=== PATIENT | male | born 1945 | race Caucasian/White ===

== ENCOUNTER 2022-03-20 12:28 | Observation (INO) ==
--- NOTE | 2022-03-20 12:47 | Emergency Department Note ---
Abdominal Pain HPI General Chief Complaint: Abdominal Pain Stated Complaint: Abdominal Pain Time Seen by Provider: 03/20/22 12:44 Source: patient Mode of arrival: ambulatory Limitations: no limitations History of Present Illness HPI Narrative: This is a 76-year-old male patient with history of PVD (status post aortofemoral bypass in 2002) on Plavix, partial small bowel resection, CAD, COPD, history of CVA and TIA, HLD, HTN who presents for 10 out of 10 abdominal pain and bloating that started yesterday. He notes that he has not had a bowel movement for a week so thought he might be constipated. He took MiraLAX yesterday and then woke up at 2 AM this morning and had a fairly copious loose bowel movement. Since then he has had 4 additional loose stools. He has had nausea but no vomiting. He denies melena or hematochezia. Patient is concerned should he need admission as he does have a long awaited pr ocedure to remove a basal cell carcinoma on his left ear on Monday. The patient currently denies chest pain or shortness of breath. He denies cough. Denies F/C/S. Denies dysuria or hematuria. Related Data Home Medications Medication Instructions Recorded Confirmed Lactobacillus acidophilus PO 08/25/16 08/25/16 acetaminophen 325 mg tablet 650 mg PO QDAY PRN Pain 08/25/16 03/20/22 aspirin 81 mg tablet,delayed 81 mg PO .COMPLEX 08/25/16 03/20/22 release atenolol 50 mg tablet 50 mg PO BID 08/25/16 08/25/16 atorvastatin 80 mg tablet 80 mg PO QHS 08/25/16 03/20/22 budesonide-formoterol HFA 80 2 inh inhalation Q12H 08/25/16 08/25/16 mcg-4.5 mcg/actuation aerosol inhaler bupropion HCl 150 mg tablet,12 hr 150 mg PO BID 08/25/16 08/25/16 sustained-release clopidogrel 75 mg tablet 75 mg PO QDAY 08/25/16 03/20/22 dextran 70-hypromellose 0.1 %-0.3 drp ophthalmic (eye) 08/25/16 08/25/16 % eye drops diphenhydramine HCl 25 mg tablet 50 mg PO TID-QID PRN 08/25/16 08/25/16 docusate sodium 250 mg capsule 250 mg PO QDAY 08/25/16 08/25/16 ergocalciferol (vitamin D2) 1,250 50,000 unit PO QWEEK 08/25/16 08/25/16 mcg (50,000 unit) capsule fluticasone 50 mcg 120D inhalation .COMPLEX 08/25/16 08/25/16 gabapentin 600 mg tablet 600 mg PO BID 08/25/16 03/20/22 hydrocortisone 1 % topical cream 1 applic topical BID PRN 08/25/16 08/25/16 (Anti-Itch (hydrocortisone)) hydrophilic cream 1 applic topical BID PRN 08/25/16 08/25/16 ipratropium 20 mcg-albuterol 100 1 inh inhalation QID 08/25/16 08/25/16 mcg/actuation mist for inhalation lactulose 10 gram/15 mL oral 20 g PO BID 08/25/16 08/25/16 solution lansoprazole 15 mg capsule,delayed 30 mg PO BID 08/25/16 08/25/16 release lisinopril 40 mg tablet 40 mg PO QHS 08/25/16 03/20/22 magnesium oxide 420 mg tablet 420 mg PO QDAY 08/25/16 08/25/16 meclizine 25 mg chewable tablet 25 mg PO TID 08/25/16 08/25/16 melatonin 3 mg tablet 3 mg PO HS PRN Sleep 08/25/16 03/20/22 multivitamin with minerals 1 tab-cap PO QDAY 08/25/16 03/20/22 nitroglycerin 0.4 mg sublingual 0.4 mg sublingual Q5-15M PRN Sleep 08/25/16 03/20/22 tablet prazosin 2 mg capsule 2 mg PO QHS 08/25/16 08/25/16 prazosin 5 mg capsule 5 mg PO QHS 08/25/16 08/25/16 carvedilol 25 mg tablet 25 mg PO BID 03/20/22 03/20/22 cyclobenzaprine 10 mg tablet 10 mg PO BID PRN Muscle Spasm 03/20/22 03/20/22 diclofenac sodium 1 % topical gel 4 g topical BID 03/20/22 03/20/22 (Arthritis Pain (diclofenac)) lidocaine 5 % topical patch 1 patch topical QDAY 03/20/22 03/20/22 omeprazole 20 mg tablet,delayed 20 mg PO QDAY 03/20/22 03/20/22 release tamsulosin 0.4 mg capsule 0.4 mg PO QDAY 03/20/22 03/20/22 Allergies Allergy/AdvReac Type Severity Reaction Status Date / Time azithromycin Allergy Unknown Verified 03/20/22 13:15 methadone [Methadone] Allergy Unknown Verified 03/20/22 13:15 morphine Allergy Unknown Verified 03/20/22 13:15 Nefazodone [From Serzone] Allergy Unknown Verified 03/20/22 13:15 sulfamethoxazole Allergy Unknown Verified 03/20/22 13:15 trimethoprim Allergy Unknown Verified 03/20/22 13:15 Sulfa Drugs Allergy Unknown Uncoded 08/25/16 15:49 Review of Systems ROS ROS Narrative: Narrative: All systems ED: reviewed and negative except as stated. [facility] Narrative Patient History Narrative: Narrative: Medical/Surgical/Family History All Active Problems (Updated 03/20/22 @ 22:29 by Lauren London PA-C) Partial obstruction of small intestine (Acute) Partial small bowel obstruction (Acute) Cervicalgia (Chronic) Anxiety (Chronic) Vitamin D deficiency (Chronic) Left knee pain (Chronic) Unsteady gait (Chronic) Secondary erythrocytosis (Chronic) Paroxysmal vertigo (Chronic) Obstructive sleep apnea syndrome (Chronic) Lymphocytosis (Chronic) Premature atrial contraction (Chronic) TIA (transient ischemic attack) (Chronic) History of cerebrovascular accident (Chronic) Hyperlipemia (Chronic) Snoring (Chronic) Upper airway resistance syndrome (Chronic) Hypersomnia (Chronic) Constipation (Chronic) Basal cell carcinoma of skin of upper extremity (Chronic) Coronary artery disease (Chronic) Angina pectoris (Chronic) Coronary arteriosclerosis (Chronic) Male erectile disorder (Chronic) Peripheral vascular disease, unspecified (Chronic) Epistaxis (Chronic) Subjective tinnitus (Chronic) Positional vertigo (Chronic) Chronic pain (Chronic) Cervical spondylosis (Chronic) COPD (chronic obstructive pulmonary disease) (Chronic) Hypercholesterolemia (Chronic) Hypertensive disorder (Chronic) Chronic post-traumatic stress disorder (Chronic) Benign prostatic hypertrophy with urinary obstruction (Chronic) Medical History Angina pectoris Anxiety Basal cell carcinoma of skin of upper extremity Benign prostatic hypertrophy with urinary obstruction Cervical spondylosis Cervicalgia Chronic pain Neck, back of head, lower back Chronic post-traumatic stress disorder Constipation COPD (chronic obstructive pulmonary disease) Coronary arteriosclerosis Coronary artery disease Epistaxis History of cerebrovascular accident Hypercholesterolemia Hyperlipemia Hypersomnia Hypertensive disorder systemic arterial Left knee pain Lymphocytosis Male erectile disorder Obstructive sleep apnea syndrome Paroxysmal vertigo Peripheral vascular disease, unspecified Positional vertigo Premature atrial contraction Secondary erythrocytosis Snoring Subjective tinnitus TIA (transient ischemic attack) Unsteady gait Upper airway resistance syndrome Vitamin D deficiency Surgical History History of aorto-femoral bypass (~2002) History of esophagogastroduodenoscopy (EGD) (12/23/10) History of resection of small bowel (~2003) Family History Other No pertinent family history Exam Narrative Narrative: General: AOx3, NAD, nontoxic appearing. Pleasant and conversant. HEENT: PERRL, EOMI, normocephalic. Moist mucous membranes. Normal facies and normal dentition. Chest: Symmetric, no pain to palpation Respiratory: Lungs clear to auscultation bilaterally. No respiratory distress. Unlabored breathing. Heart: Bradycrdic rate and rhythm, no murmurs/clicks/rubs. Abdomen: Left upper quadrant and left lower quadrant tenderness. The abdomen is distended. Absent bowel tones. she hasNo organomegaly. Extremities: Warm and well perfused. No edema. DP 2+ bilaterally. No venous stasis. Neuro: No focal deficits. Cranial nerves II-XII grossly normal. Skin: Warm dry, no rashes or lesions, no cyanosis. Psych: Normal mood and affect Heme/Lymph: No abnormal bruising General Limitations: no limitations Course Course Course Narrative: 76-year-old male presents with acute abdominal pain and bloating Reevaluation(s) Reevaluation #1: Obtain basic labs, CTA of the abdomen pelvis with contrast to rule out small bowel obstruction, occlusion of his aortic bifemoral grafts, mesenteric ischemia, other Obtain troponin and EKG to rule out cardiac ischemia Reevaluation #2: Basic labs are unremarkable. EKG is negative for acute ischemia. Troponin is undetectable. CT of the abdomen pelvis without aortobifem graft compromise. No evidence of mesenteric ischemia. Partial small bowel obstruction is noted in the jejunum. I reached out to Dr. Mejias for consultation and admission. He will see the patient. Vital Signs Vital signs: Vital Signs Temperature 98.1 F 03/20/22 12:30 Pulse Rate 57 L 03/20/22 12:30 Respiratory Rate 18 03/20/22 12:30 Blood Pressure 135/59 03/20/22 12:30 Pulse Oximetry (%) 98 03/20/22 12:30 Oxygen Delivery Method 03/20/22 12:30 Temperature 97.5 F 03/20/22 20:00 Pulse Rate 85 03/20/22 20:00 Respiratory Rate 18 03/20/22 20:00 Blood Pressure 118/56 03/20/22 20:00 Pulse Oximetry (%) 96 03/20/22 20:00 Oxygen Delivery Method 03/20/22 20:00 MDM MDM Narrative Medical decision making narrative: Partial small bowel obstruction I reached out to Dr. Mejias for consultation and admission. Patient has been accepted. N.p.o., IV fluids, pain meds as needed. Lab Data Result diagrams: 03/20/22 13:03 Labs: Lab Results 03/20/22 03/20/22 03/20/22 Range/Units 13:03 13:03 13:03 WBC 10.6 (4.5-11.0) K/mcL RBC 4.65 (4.63-6.08) M/mcL Hgb 14.4 (13.7-17.5) g/dL Hct 43.3 (40.1-51.0) % POC Hct (41-55) MCV 93.1 (80.0-100.0) fL MCH 31.0 (26.0-34.0) pg MCHC 33.3 (31.0-36.0) g/dL RDW 12.8 (11.5-14.5) % Plt Count 271 (140-440) K/mcL MPV 9.5 (7.4-10.4) fL Immature Gran % (Auto) 0.3 (0.0-0.5) % Neut % (Auto) 68.7 (38.0-78.0) % Lymph % (Auto) 21.5 (15.5-49.0) % Bibb % (Auto) 8.0 (1.0-12.0) % Eos % (Auto) 1.1 (0.0-7.0) % Baso % (Auto) 0.4 (0.0-2.0) % Lymph # (Auto) 2.27 (1.50-4.80) K/mcL Bibb # (Auto) 0.85 (0.10-0.90) K/mcL Eos # (Auto) 0.12 (0.00-0.70) K/mcL Baso # (Auto) 0.04 (0.00-0.30) K/mcL Immature Gran # 0.03 (0.00-0.05) K/mcl Absolute Neutrophils 7.25 (1.80-8.00) K/mcL ESR 1 (0-20) mm/hr POC Sodium (133-145) POC Potassium (3.3-5.1) POC Chloride (96-108) POC Total CO2 (22-30) POC BUN (6-20) POC Creatinine (0.6-1.2) POC Glucose (70-105) POC WB Ioniz Calcium (1.16-1.32) Lipase 14 (7-60) U/L Urine Color Urine Appearance (Clear) Urine pH (5.0-9.0) Ur Specific [place] (1.000-1.035) Urine Protein (Negative) mg/dL Urine Glucose (UA) (Negative) mg/dL Urine Ketones (Negative) mg/dL Urine Occult Blood (Negative) dorothy/mcL Urine Nitrate (Negative) Urine Bilirubin (Negative) mg/dL Urine Urobilinogen mg/dL Ur Leukocyte Esterase (Negative) /uL Ur Culture Indicated? POC Troponin I (0.02-0.08) 03/20/22 03/20/22 03/20/22 Range/Units 13:07 13:09 13:45 WBC (4.5-11.0) K/mcL RBC (4.63-6.08) M/mcL Hgb (13.7-17.5) g/dL Hct (40.1-51.0) % POC Hct 44.0 (41-55) MCV (80.0-100.0) fL MCH (26.0-34.0) pg MCHC (31.0-36.0) g/dL RDW (11.5-14.5) % Plt Count (140-440) K/mcL MPV (7.4-10.4) fL Immature Gran % (Auto) (0.0-0.5) % Neut % (Auto) (38.0-78.0) % Lymph % (Auto) (15.5-49.0) % Bibb % (Auto) (1.0-12.0) % Eos % (Auto) (0.0-7.0) % Baso % (Auto) (0.0-2.0) % Lymph # (Auto) (1.50-4.80) K/mcL [place] # (Auto) (0.10-0.90) K/mcL Eos # (Auto) (0.00-0.70) K/mcL Baso # (Auto) (0.00-0.30) K/mcL Immature Gran # (0.00-0.05) K/mcl Absolute Neutrophils (1.80-8.00) K/mcL ESR (0-20) mm/hr POC Sodium 133 (133-145) POC Potassium 4.5 (3.3-5.1) POC Chloride 97 (96-108) POC Total CO2 27.0 (22-30) POC BUN 26 H (6-20) POC Creatinine 1.1 (0.6-1.2) POC Glucose 132 H (70-105) POC WB Ioniz Calcium 1.19 (1.16-1.32) Lipase (7-60) U/L Urine Color Yellow Urine Appearance Clear (Clear) Urine pH 6.5 (5.0-9.0) Ur Specific [place] <= 1.005 (1.000-1.035) Urine Protein Negative (Negative) mg/dL Urine Glucose (UA) Negative (Negative) mg/dL Urine Ketones Negative (Negative) mg/dL Urine Occult Blood Negative (Negative) dorothy/mcL Urine Nitrate Negative (Negative) Urine Bilirubin Negative (Negative) mg/dL Urine Urobilinogen Normal mg/dL Ur Leukocyte Esterase Negative (Negative) /uL Ur Culture Indicated? No POC Troponin I 0 L (0.02-0.08) Discharge Plan Patient/Caregiver Discharge Instructions Pt seen by DRAW IN HAND/PA only: Yes Clinical Impression: Partial obstruction of small intestine Patient Disposition: Xfer As Inpt ([facility]) Condition: Fair Discharge Date/Time: 03/20/22 16:23
[2022-03-20 13:10] LABS: POC Calcium, Ionized 1.19 (1.16-1.32); POC Creatinine 1.1 (0.6-1.2); POC Potassium 4.5 (3.3-5.1)
[2022-03-20] MEDS ORDERED: ACETAMINOPHEN 1,000 MG/100 ML BAG IV ONE (13:43)
[2022-03-20 13:51] LABS: Basophils # (Auto) 0.04 K/mcL (0.00-0.30); Basophils % (Auto) 0.4 % (0.0-2.0); Eosinophils # (Auto) 0.12 K/mcL (0.00-0.70); Eosinophils % (Auto) 1.1 % (0.0-7.0); Hematocrit 43.3 % (40.1-51.0); Hemoglobin 14.4 g/dL (13.7-17.5); Lymphocytes # (Auto) 2.27 K/mcL (1.50-4.80); Lymphocytes % (Auto) 21.5 % (15.5-49.0); Mean Cell Volume 93.1 fL (80.0-100.0); Mean Corpuscular HGB Conc 33.3 g/dL (31.0-36.0); Mean Platelet Volume 9.5 fL (7.4-10.4); Monocytes # (Auto) 0.85 K/mcL (0.10-0.90); Neutrophils % (Auto) 68.7 % (38.0-78.0); Platelet Count 271 K/mcL (140-440); RBC 4.65 M/mcL (4.63-6.08); Red Cell Distribution Width 12.8 % (11.5-14.5); WBC 10.6 K/mcL (4.5-11.0)
[2022-03-20 14:36] LABS: Appearance,Urine Clear (Clear); Bilirubin,Urine Negative (Negative); Color,Urine Yellow; Culture Indicated,Urine No; Glucose,Urine (UA) Negative (Negative); Ketones,Urine Negative (Negative); Leukocyte Esterase,Urine Negative /uL (Negative); Nitrate,Urine Negative (Negative); PH,Urine 6.5 (5.0-9.0); Protein,Urine Negative (Negative); Specific Gravity,Urine <= 1.005 (1.000-1.035); Urine Blood Negative ery/mcL (Negative); Urobilinogen,Urine Normal
[2022-03-20] MEDS ORDERED: ONDANSETRON 4 MG/2 ML VIAL IV PRN (15:19)
[2022-03-20] MEDS ORDERED: HYDROmorphone 1 MG/ML SYRINGE IV PRN (15:24)
[2022-03-20] MEDS ORDERED: PROMETHAZINE 25 MG/ML VIAL IV PRN (15:24)
[2022-03-20] MEDS: 0.9 % SODIUM CHLORIDE 1,000 ML IV SCH ×2 (15:33→19:38)
--- NOTE | 2022-03-20 15:43 | General Surg History&Physical ---
HPI History of Present Illness Patient information: Note initiated : 03/20/22 at 3:32 pm Service Date, if different from initiated Date: [] Patient: Homer Muoñz a 76 y/o M admitted on for Abdominal Pain. Chief Complaint: [] Chief complaint: Partial small bowel obstruction History of present illness: Mr. Muñoz is a 76 year old M admitted with partial small bowel obstruction. He has a history of 2 operative procedures in the remote past.One Was related to abdominal aortic aneurysm repair and the abdomen was was related to small bowel obstruction which required small bowel resection. On yesterday he developed in creased abdominal distention with bloating. He has had 5 days without bowel movement. He took a laxative which led to crampy abdominal pain and nausea. He had a bowel movement earlier today but still has severe crampy pain. The pain is primarily in his left lower quadrant. Findings suggest incomplete small bowel obstruction with dilated proximal loops of small bowel near the old anastomosis. Since his admission he has had at least a small amount of flatus and bowel movements. He has left lower quadrant pain. He is admitted for observation with a presumed partial obstruction probably related to adhesive disease. He will be treated symptomatically with follow-up x-rays of the abdomen in the a.m. Review of Systems All systems: reviewed and no additional remarkable complaints except as stated PFSH PFSH All Active Problems (Updated 03/20/22 @ 15:41 by Afia Mejias MD) Partial small bowel obstruction (Acute) Cervicalgia (Chronic) Anxiety (Chronic) Vitamin D deficiency (Chronic) Left knee pain (Chronic) Unsteady gait (Chronic) Secondary erythrocytosis (Chronic) Paroxysmal vertigo (Chronic) Obstructive sleep apnea syndrome (Chronic) Lymphocytosis (Chronic) Premature atrial contraction (Chronic) TIA (transient ischemic attack) (Chronic) History of cerebrovascular accident (Chronic) Hyperlipemia (Chronic) Snoring (Chronic) Upper airway resistance syndrome (Chronic) Hypersomnia (Chronic) Constipation (Chronic) Basal cell carcinoma of skin of upper extremity (Chronic) Coronary artery disease (Chronic) Angina pectoris (Chronic) Coronary arteriosclerosis (Chronic) Male erectile disorder (Chronic) Peripheral vascular disease, unspecified (Chronic) Epistaxis (Chronic) Subjective tinnitus (Chronic) Positional vertigo (Chronic) Chronic pain (Chronic) Cervical spondylosis (Chronic) COPD (chronic obstructive pulmonary disease) (Chronic) Hypercholesterolemia (Chronic) Hypertensive disorder (Chronic) Chronic post-traumatic stress disorder (Chronic) Benign prostatic hypertrophy with urinary obstruction (Chronic) Medical History Angina pectoris Anxiety Basal cell carcinoma of skin of upper extremity Benign prostatic hypertrophy with urinary obstruction Cervical spondylosis Cervicalgia Chronic pain Neck, back of head, lower back Chronic post-traumatic stress disorder Constipation COPD (chronic obstructive pulmonary disease) Coronary arteriosclerosis Coronary artery disease Epistaxis History of cerebrovascular accident Hypercholesterolemia Hyperlipemia Hypersomnia Hypertensive disorder systemic arterial Left knee pain Lymphocytosis Male erectile disorder Obstructive sleep apnea syndrome Paroxysmal vertigo Peripheral vascular disease, unspecified Positional vertigo Premature atrial contraction Secondary erythrocytosis Snoring Subjective tinnitus TIA (transient ischemic attack) Unsteady gait Upper airway resistance syndrome Vitamin D deficiency Surgical History History of aorto-femoral bypass (~2002) History of esophagogastroduodenoscopy (EGD) (12/23/10) History of resection of small bowel (~2003) Family History Other No pertinent family history Social History marital status: MEDS/ALLERGIES Home Medications and Allergies Home Medications Medication Instructions Recorded Confirmed Type Lactobacillus acidophilus PO 08/25/16 08/25/16 History acetaminophen 325 mg tablet 650 mg PO QDAY PRN Pain 08/25/16 03/20/22 History aspirin 81 mg tablet,delayed 81 mg PO .COMPLEX 08/25/16 03/20/22 History release atenolol 50 mg tablet 50 mg PO BID 08/25/16 08/25/16 History atorvastatin 80 mg tablet 80 mg PO QHS 08/25/16 03/20/22 History budesonide-formoterol HFA 80 2 inh inhalation Q12H 08/25/16 08/25/16 History mcg-4.5 mcg/actuation aerosol inhaler bupropion HCl 150 mg tablet,12 hr 150 mg PO BID 08/25/16 08/25/16 History sustained-release clopidogrel 75 mg tablet 75 mg PO QDAY 08/25/16 03/20/22 History dextran 70-hypromellose 0.1 %-0.3 drp ophthalmic (eye) 08/25/16 08/25/16 History % eye drops diphenhydramine HCl 25 mg tablet 50 mg PO TID-QID PRN 08/25/16 08/25/16 History docusate sodium 250 mg capsule 250 mg PO QDAY 08/25/16 08/25/16 History ergocalciferol (vitamin D2) 1,250 50,000 unit PO QWEEK 08/25/16 08/25/16 History mcg (50,000 unit) capsule fluticasone 50 mcg 120D inhalation .COMPLEX 08/25/16 08/25/16 History gabapentin 600 mg tablet 600 mg PO BID 08/25/16 03/20/22 History hydrocortisone 1 % topical cream 1 applic topical BID PRN 08/25/16 08/25/16 History (Anti-Itch (hydrocortisone)) hydrophilic cream 1 applic topical BID PRN 08/25/16 08/25/16 History ipratropium 20 mcg-albuterol 100 1 inh inhalation QID 08/25/16 08/25/16 History mcg/actuation mist for inhalation lactulose 10 gram/15 mL oral 20 g PO BID 08/25/16 08/25/16 History solution lansoprazole 15 mg capsule,delayed 30 mg PO BID 08/25/16 08/25/16 History release lisinopril 40 mg tablet 40 mg PO QHS 08/25/16 03/20/22 History magnesium oxide 420 mg tablet 420 mg PO QDAY 08/25/16 08/25/16 History meclizine 25 mg chewable tablet 25 mg PO TID 08/25/16 08/25/16 History melatonin 3 mg tablet 3 mg PO HS PRN Sleep 08/25/16 03/20/22 History multivitamin with minerals 1 tab-cap PO QDAY 08/25/16 03/20/22 History nitroglycerin 0.4 mg sublingual 0.4 mg sublingual Q5-15M PRN Sleep 08/25/16 03/20/22 History tablet prazosin 2 mg capsule 2 mg PO QHS 08/25/16 08/25/16 History prazosin 5 mg capsule 5 mg PO QHS 08/25/16 08/25/16 History carvedilol 25 mg tablet 25 mg PO BID 03/20/22 03/20/22 History cyclobenzaprine 10 mg tablet 10 mg PO BID PRN Muscle Spasm 03/20/22 03/20/22 History diclofenac sodium 1 % topical gel 4 g topical BID 03/20/22 03/20/22 History (Arthritis Pain (diclofenac)) lidocaine 5 % topical patch 1 patch topical QDAY 03/20/22 03/20/22 History omeprazole 20 mg tablet,delayed 20 mg PO QDAY 03/20/22 03/20/22 History release tamsulosin 0.4 mg capsule 0.4 mg PO QDAY 03/20/22 03/20/22 History Allergies Allergy/AdvReac Type Severity Reaction Status Date / Time azithromycin Allergy Unknown Verified 03/20/22 13:15 methadone [Methadone] Allergy Unknown Verified 03/20/22 13:15 morphine Allergy Unknown Verified 03/20/22 13:15 Nefazodone [From Serzone] Allergy Unknown Verified 03/20/22 13:15 sulfamethoxazole Allergy Unknown Verified 03/20/22 13:15 trimethoprim Allergy Unknown Verified 03/20/22 13:15 Sulfa Drugs Allergy Unknown Uncoded 08/25/16 15:49 Physical Examination Vital Signs Vital signs: Temp Pulse Resp BP Pulse Ox O2 Del Method 98.1 F 58 L 13 139/54 100 03/20/22 12:30 03/20/22 15:16 03/20/22 15:16 03/20/22 15:16 03/20/22 15:01 03/20/22 12:30 General physical appearance General physical exam: well developed, well nourished, moderate pain and chronically ill Eyes Eye exam: PERRL and normal ocular movement ENT ENT exam: normal mucosa and other (Ulcerated neoplasm posterior aspect of left pinna; no adenopathy noted) Head Head exam IM: Present atraumatic, normal inspection and normocephalic Neck Neck exam: no masses, no bruits, trachea midline, no lymphadenopathy and no venous distension Cardiovascular Cardiovascular exam IM: Present normal rate and rhythm, RRR, +S1 and +S2; Absent JVD Respiratory Respiratory exam: normal expansion, normal respiratory effort and clear to au scultation Abdomen Abdomen: Present soft, tender (Left lower quadrant at the level of umbilicus) and bowel sounds (Hyperactive bowel sounds) Integumentary Integumentary: Present no rash, no growths and no abnormal pigmentation Neurologic Neurologic: Present normal coordination and normal sensation Musculoskeletal Musculoskeletal: Present normal gait and normal posture Psychiatric Psychiatric: Present oriented to time, oriented to person, oriented to place, speech is normal and memory intact Results Labs Result diagrams: 03/20/22 13:03 Labs: Abnormal lab results 03/20/22 03/20/22 Range/Units 13:07 13:09 POC BUN 26 H (6-20) POC Glucose 132 H (70-105) POC Troponin I 0 L (0.02-0.08) All other labs normal. A/P Assessment and plan (1) Partial small bowel obstruction: Status: Acute (2) Obstructive sleep apnea syndrome: Status: Chronic (3) Coronary artery disease: Status: Chronic (4) Peripheral vascular disease, unspecified: Status: Chronic (5) COPD (chronic obstructive pulmonary disease): Status: Chronic Plan Allow clear liquids Metoclopramide 10 mg IV every 6 hours CBC, inpatient panel, sedimentation rate, lactic acid in the morning 2 view abdominal x-rays in the a.m. Small bowel follow-through if patient still has significant distention Time Spent With Patient Time: Total time spent is greater than 50% in coordination of care (as documented) at patient's floor/unit and/or counseling patient:
[2022-03-20] MEDS ORDERED: DIATRIZOATE MEGLU/DIATRIZO SOD 120 ML BOTTLE PO ONE (16:13)
--- NOTE | 2022-03-20 17:11 | Cat Scan Report ---
CLINICAL INFORMATION: Abdominal pain. History of aortobifemoral bypass graft COMPARISON: None. TECHNIQUE: Following enteric contrast, 80 cc of Isovue-[id number] were injected intravenously, and 20/60 seconds later, 0.625 mm helical slices were obtained from the mid heart through the subtrochanteric regions. Following reconstruction, 2.5 mm sagittal, coronal and axial reformatted images were processed and reviewed at bone, lung and soft tissue windows. Five minutes later, 0.625 mm helical slices were obtained from the mid heart through the kidneys and viewed at soft tissue windows.The exam was performed using radiation dose optimization techniques including, but not limited to, automated exposure control, adjustment of the mA and/or kV according to patient size and use of iterative reconstruction technique. FINDINGS: The lung bases show mild airspace disease in the posterior lower lobes likely atelectasis. No effusions.. The visualized heart is grossly normal. Abdominal images show the mild fatty change within the liver. There is a 18 mm simple cyst in the subdiaphragmatic right hepatic lobe. Gallbladder and bile ducts are normal colon CBD is 5 mm. Both kidneys, adrenal glands, spleen, and pancreas are normal in size, configuration and attenuation without focal lesion. There is no free air or adenopathy. A end to side infrarenal abdominal bifemoral bypass graft appreciated. Both proximal and distal anastomoses unremarkable. The common femoral and proximal superficial femoral and profunda femoral arteries contain plaque but no stenoses. The [place] infrarenal abdominal aorta and iliac arteries are moderately occluded-as expected. Celiac, SMA and renal arteries contain plaque, but no stenoses. Pelvic images show moderate prostate enlargement: transverse dimension 5 cm. Mild diffuse wall thickening of urinary bladder suggests chronic bladder outlet narrowing related to prostatism. The stomach, duodenum and jejunum are mildly dilated with relative decreased caliber of the distal small bowel and colon. Findings suggestive of mild partial small bowel obstruction in the mid region. Exact transition point is not identified. A small amount of free fluid in the deep true pelvis suggests early third spacing. Bone windows show no osseous abnormality IMPRESSION: 1. Mild mid partial small bowel obstruction. Small amount of free fluid in the deep true pelvis suggests early third spacing. 2. Moderate prostate enlargement. 3. Aortobifemoral bypass graft typical postoperative appearance. No complication. Interpreted and Authenticated by: Zion Encinas 03/20/22
[2022-03-20] MEDS: METOCLOPRAMIDE 10 MG/2 ML VIAL IV SCH ×2 (18:00→23:33)
[2022-03-20] MEDS: 0.9 % SODIUM CHLORIDE 10 ML SYRINGE IV SCH ×2 (19:39→20:25)
[2022-03-21] MEDS: 0.9 % SODIUM CHLORIDE 1,000 ML IV SCH ×2 (05:47→15:45)
[2022-03-21] MEDS: 0.9 % SODIUM CHLORIDE 10 ML SYRINGE IV SCH ×2 (05:56→13:56)
[2022-03-21] MEDS: METOCLOPRAMIDE 10 MG/2 ML VIAL IV SCH ×2 (05:56→12:11)
[2022-03-21 06:06] LABS: Basophils # (Auto) 0.04 K/mcL (0.00-0.30); Basophils % (Auto) 0.4 % (0.0-2.0); Eosinophils # (Auto) 0.14 K/mcL (0.00-0.70); Eosinophils % (Auto) 1.4 % (0.0-7.0); Hematocrit 38.6 % (40.1-51.0); Mean Cell Volume 92.6 fL (80.0-100.0); Mean Corpuscular HGB Conc 33.7 g/dL (31.0-36.0); Mean Platelet Volume 9.4 fL (7.4-10.4); Monocytes # (Auto) 0.88 K/mcL (0.10-0.90); Monocytes % (Auto) 8.8 % (1.0-12.0); Neutrophils % (Auto) 76.1 % (38.0-78.0); Platelet Count 217 K/mcL (140-440); RBC 4.17 M/mcL (4.63-6.08); Red Cell Distribution Width 12.7 % (11.5-14.5)
[2022-03-21 06:39] LABS: ALT/SGPT 10 U/L (<40); AST/SGOT 11 U/L (<40); Albumin 3.3 gm/dL (3.2-5.2); Albumin/Globulin Ratio 1.6 (1.0-2.3); Alkaline Phosphatase 71 U/L (39-117); Bilirubin,Direct < 0.2 mg/dL (0-0.3); Bilirubin,Total 0.5 mg/dL (0.1-1.0); Blood Urea Nitrogen 12 mg/dL (8-23); Calcium 7.8 mg/dL (8.6-10.4); Carbon Dioxide 23 mmol/L (22-30); Chloride 103 mmol/L (96-108); Globulin 2.1 gm/dL (2.2-3.7); Glomerular Filtration Rate 87; Glucose 95 mg/dL (70-105); Lactate Dehydrogenase 125 U/L (135-225); Phosphorous 2.4 mg/dL (2.5-4.5); Triglycerides 100 mg/dL (<150); Uric Acid 4.7 mg/dL (2.5-8.0)
[2022-03-21] MEDS ORDERED: PANTOPRAZOLE 40 MG TABLET PO SCH (07:30)
--- NOTE | 2022-03-21 07:33 | EKG ---
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 Measurements Intervals Bryan Rate: 56 P: 64 MD: 197 QRS: 73 QRSD: 98 T: 35 QT: 423 QTc: 409 Interpretive Statements Sinus rhythm Electronically Signed On 03-21-2022 7:32:55 PDT by Zion Santos M.D. /store/[email or web address]/[id number]
--- NOTE | 2022-03-21 08:22 | XRay Report ---
HISTORY: Follow-up small bowel obstruction FINDINGS: Supine and erect views were obtained. There are numerous air-fluid levels within stomach, small intestine and large intestine. Some of the loops of small intestine are dilated measuring up to 4.9 cm. No free intra-abdominal air is present. There is some stool in the large intestine from the splenic flexure to the rectum. Comparison with the prior CT performed yesterday shows relatively little change, except for more air-fluid levels in nondilated large intestine on today's study. IMPRESSION: Air-fluid levels in both large and small intestine. This is a nonspecific pattern, which could be an incomplete small bowel obstruction or ileus. Interpreted and Authenticated by: Saurabh Santos 03/21/22
--- NOTE | 2022-03-21 14:04 | XRay Report ---
HISTORY: Follow-up small bowel obstruction, prior partial small bowel resection for mechanical obstruction FINDINGS: Patient drank dilute Gastrografin contrast and serial images were acquired. Multiple fluoroscopic images were acquired. One minute 15 seconds of fluoroscopy time was used. The stomach is normal in contour and has normal distensibility and normal mucosal pattern. The duodenum is normal. Proximal jejunum is normal. There are is mild dilatation of segments of the distal jejunum and proximal ileum measuring up to 4.5 cm in diameter. The mucosal pattern is normal. No transition point is seen. Distal ileum is normal in caliber. The terminal ileum is partially obscured by overlying loops of bowel. The contrast has passed into the transverse colon by 90 minutes. Comparison with the CT done on 03/20/22 shows the caliber of the small intestine is smaller today. IMPRESSION: Resolved small bowel obstruction Interpreted and Authenticated by: Saurabh Santos 03/21/22
--- NOTE | 2022-03-21 15:25 | Discharge Summary ---
Discharge Provider Provider IMPORTANT FOLLOW-UP INFORMATION FOR PCP: Patient information: Note initiated : 03/21/22 at 3:17 pm Service Date, if different from initiated Date: [] Patient: Homer Muñoz 76 y/o M admitted on 03/20/22 for Abdominal Pain. Chief Complaint: [] Date of admission: 03/20/22 16:12 Discharge date: 03/21/22 Primary care physician: Siobhan Mejias Admitting clinician: Afia Mejias Attending physician on admission: Afia Mejias Consults: 03/20/22 Consult to Physician [CONS] Stat Comment: Consulting Provider: Afia Mejias Reason For Exam: Physician to Consult Attending physician on discharge: Afia Mejias Discharging clinician: Afia Mejias COURSE Hospital Course Hospital course: 76-year-old male with history of 2 prior open abdominal procedures and prior history of small bowel obstruction due to adhesions. Patient presents with history of increasing abdominal distention and no bowel movement x5 days. He took a laxative on the day prior to coming to the emergency room and had a very small bowel movement but still had significant pain and distention. He was admitted and started on bowel rest supplemented by metoclopramide. His abdomen remained distended though there was more contrast in his colon. He had a small bowel follow-through earlier today and this showed drainage into the colon and 2 hours with multiple bowel movements. He states that he feels better. There is no discrete area of obstruction noted. He is tolerated full liquid diet and is stable for discharge home. 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 Secondary discharge diagnosis: Obstructive sleep apnea Constipation Peripheral vascular disease Chronic obstructive lung disease Reason for admission: Small bowel obstruction Procedures: None Pertinent studies/significant findings: CT of abdomen and pelvis Single contrast small bowel follow-through Complications: None Time Spent with Patient Time attestation: Total time spent providing and/or coordinating discharge services: Time spent: Less than 30 minutes Physical Examination Vital Signs Vital signs: Temp Pulse Resp BP Pulse Ox O2 Del Method 97.3 F 66 18 156/73 91 03/21/22 12:00 03/21/22 12:00 03/21/22 12:00 03/21/22 12:00 03/21/22 12:00 03/21/22 12:00 Eyes Eye exam: PERRL and normal ocular movement ENT ENT exam: normal nares and other (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) Head Head exam IM: Present atraumatic, normal inspection and normocephalic Neck Neck exam: no masses, no bruits, trachea midline, no lymphadenopathy and no venous distension Cardiovascular Cardiovascular exam IM: Present normal rate and rhythm, RRR, +S1 and +S2; Absent JVD Respiratory Respiratory exam: normal expansion, normal respiratory effort and clear to auscultation Abdomen Abdomen: Present soft, non tender, bowel sounds (Hyperactive bowel sounds), surgical scars (Healed midline incision without hernia) and distended (Mild distention but soft) Integumentary Integumentary: Present no rash, no growths and no abnormal pigmentation Neurologic Neurologic: Present normal coordination and normal sensation Musculoskeletal Musculoskeletal: Present normal gait and normal posture Psychiatric Psychiatric: Present oriented to time, oriented to person, oriented to place, speech is normal and memory intact Discharge Plan Patient/Caregiver Discharge Instructions Activity: increase activity as tolerated Diet: Full Liquid Instructions: Polyethylene Glycol 3350 (By mouth), Bowel Obstruction (DC) Prescriptions: No Action aspirin 81 mg tablet,delayed release (DR/EC) 81 mg PO .COMPLEX Label Comments: 81 mg PO take 2 tablets QDAY Rx Instructions: 81 mg PO take 2 tablets QDAY atorvastatin 80 mg tablet 80 mg PO QHS bupropion HCl 150 mg tablet extended release 150 mg PO DAILY clopidogrel 75 mg tablet 75 mg PO QDAY dextran 70-hypromellose 0.1-0.3 % drops 1 drp OPHTHALMIC PRN PRN (Reason: Dry Eye(S)) diphenhydramine HCl 25 mg tablet 25 mg PO BID docusate sodium 250 mg capsule 250 mg PO QDAY fluticasone 50 mcg 120D 50 mcg drops 1 dose INHALATION DAILY Label Comments: INHALATION Rx Instructions: INHALATION gabapentin 600 mg tablet 600 mg PO BID hydrophilic cream cream 1 applic TOPICAL BID PRN (Reason: itching) lisinopril 40 mg tablet 40 mg PO QAM melatonin 3 mg tablet 3 mg PO HS PRN (Reason: Sleep) multivitamin with minerals capsule 1 tab-cap PO QDAY nitroglycerin 0.4 mg tablet, sublingual 0.4 mg SUBLINGUAL Q5-15M PRN (Reason: Sleep) carvedilol 25 mg Tablet 25 mg PO BID Rx Instructions: must administer with a meal/food cyclobenzaprine 10 mg Tablet 5 - 10 mg PO BID PRN (Reason: Muscle Spasm) diclofenac sodium [Arthritis Pain (diclofenac)] 1 % Gel 4 g TOPICAL BID lidocaine 5 % Adhesive Patch,Medicated 1 patch TOPICAL QDAY Rx Instructions: leave on most painful area for up to 12 hrs omeprazole 20 mg Tablet,Delayed Release (Dr/Ec) 20 mg PO QDAY tamsulosin 0.4 mg Capsule 0.4 mg PO QDAY tiotropium-olodaterol 2.5-2.5 mcg/actuation Mist 2 puff INHALATION DAILY acetaminophen 500 mg Tablet 1,000 mg PO BID PRN (Reason: Pain) Prescription drug monitoring program results: PDMP not reviewed Follow Up Plan Follow up with: Siobhan Mejias ARNP [Primary Care Provider] - (as needed.) Patient Disposition: Home, Self-Care Prognosis: Good Rehab Potential: Good I certify that the patient requires SNF services: No Overall status at discharge: patient is progressing back to baseline Discharge Orders: Discharge Order (Routine); Ordered 03/21/22 Ordered By: Afia Mejias Pending Pending Pending: Resuscitation Status Resuscitate (Full Code) Diet Full Liquid Diet Start MonMar 21 141 Hydromorphone HCl (Hydromorphone 1 Mg/Ml Syringe) 1 mg IV Q2HP PRN; Protocol PRN Reason: Per Pain Protocol Last Admin: 03/21/22 13:55 Dose: 1 mg Documented By: AFSHIN Sodium Chloride (Sodium Chloride 0.9%) 1,000 mls @ 100 mls/hr IV .Q10H [facility] Last Admin: 03/21/22 05:47 Dose: 100 mls/hr Documented By: Infusion: 03/21/22 05:47 Dose: 100 mls/hr Documented By: Admin: 03/20/22 19:38 Dose: 100 mls/hr Documented By: Infusion: 03/20/22 19:38 Dose: 0 mls/hr Documented By: Admin: 03/20/22 15:33 Dose: 100 mls/hr Documented By: GENOVEVA Metoclopramide HCl (Metoclopramide 10 Mg/2 Ml Vial) 10 mg IV Q6 [facility] Last Admin: 03/21/22 12:11 Dose: 10 mg Documented By: Admin: 03/21/22 05:56 Dose: 10 mg Documented By: Admin: 03/20/22 23:33 Dose: 10 mg Documented By: Admin: 03/20/22 18:00 Dose: 10 mg Documented By: ZOFIA Pantoprazole Sodium (Pantoprazole 40 Mg Tablet) 40 mg PO QAMAC [facility] Last Admin: 03/21/22 07:43 Dose: 40 mg Documented By: AFSHIN Sodium Chloride (0.9 % Sodium Chloride 10 Ml Syringe) 10 ml IV Q8 [facility] Last Admin: 03/21/22 13:56 Dose: 10 ml Documented By: Admin: 03/21/22 05:56 Dose: Not Given Documented By: Admin: 03/20/22 20:25 Dose: Not Given Documented By: Admin: 03/20/22 19:39 Dose: 10 ml Documented By: LÓPEZ Shift Summary 03/21/22 02:27 Shift Summary by Delia Calderon admit medical OBS 03/20 for partial SBO A&OX4, RA, VSS, 20G LAC, SBA, gait steady, voids per BR, no flatus or BM, calls appropriately, very pleasant and cooperative ABD 2VXR 03/21, depending on results may have small bowel follow through receiving Reglan, Protonix, NS @100mls/hr, no PRNs thus far HX- sleep apnea, COPD, HTN, Abdominal Aortic Aneurysm repair, small bowel resection, 0 BM x5 days prior to admit (small liquid spot of BM only) would like to D/C BY MONDAY D/T SURGICAL APPT FOR SKIN CANCER REMOVAL TO LEFT EAR, lives independently at home with family Initialized on 03/21/22 02:27 - END OF NOTE
[2022-03-21] MEDS ORDERED: PNEUMOCOCCAL 23-VAL P-SAC VAC 0.5 ML SYRINGE IM ONE (16:00)
[2022-03-22] MEDS ORDERED: PNEUMOCOCCAL 23-VAL P-SAC VAC 0.5 ML SYRINGE IM ONE (09:00)
== END 2022-03-21 16:02 | disposition home or self-care (01) ==
LOC: ED 12:28 → MEDSUR 12:28
PROVIDERS: ADMIT Family Medicine Adult Medicine; ATTEND Family Medicine Adult Medicine

== ENCOUNTER 2022-06-28 09:31 | Inpatient (IN) ==
[2022-06-28] MEDS ORDERED: IODIXANOL 100 ML BOTTLE IV ONE (09:32)
[2022-06-28] MEDS ORDERED: 0.9 % SODIUM CHLORIDE 1,000 ML IV ONE (09:47)
--- NOTE | 2022-06-28 10:05 | XRay Report ---
INDICATION: sob, covid TECHNIQUE: AP portable upright chest x-ray COMPARISON: Previous chest x-rays dated 11/28/2014, 11/06/2010 FINDINGS: Lungs:There are interstitial type infiltrates, especially at the right lung base. I cannot exclude a cavitary lesion at the right lung base. This would be atypical for Covid pneumonia. CT scan recommended. There is a round density projected over the left lung base most consistent with prominent nipple shadow. Heart, vascular:Heart size is within normal limits considering AP positioning. There are septal lines at both lung bases. These are nonspecific. Interstitial edema is possible but interstitial pneumonia can cause a similar appearance Mediastinum, carlos:No mediastinal widening. No hilar mass Pleura:No pleural fluid. No pleural-based mass or calcification Skeletal:Negative. IMPRESSION: 1. Bilateral interstitial infiltrates with bibasilar predominance. Appearance is consistent with pneumonia in Covid pneumonia is possible 2. Possible cavitating abnormality at the right lung base. Recommend CT scan Interpreted and Authenticated by: Zion Bee 06/28/22
[2022-06-28 10:11] LABS: POC Calcium, Ionized 1.12 (1.16-1.32); POC Creatinine 0.6 (0.6-1.2); POC Potassium 3.7 (3.3-5.1)
--- NOTE | 2022-06-28 10:41 | Emergency Department Note ---
SOB HPI General Chief Complaint: Shortness of Breath/Dyspnea Stated Complaint: COVID Time Seen by Provider: 06/28/22 09:34 Source: patient Mode of arrival: ambulatory Limitations: no limitations History of Present Illness HPI Narrative: Narrative: Patient presents to ED with complaints of not feeling well for almost 2 weeks. He states that he has been having cough, congestion, shortness of breath just generalized weakness. He states that 7 days ago he was diagnosed with COVID at the walk-in clinic. [facility] are concerned that he may have developed a pneumonia so they sent him here. Currently denies fever, chills, nausea, vomiting, cardiac chest pain, heart palpitations, hemoptysis, abdominal pain, diarrhea, dysuria, urinary frequency. He does report some congestion and some green sputum production. Patient denies any other alleviating or aggravating factors. Related Data Home Medications Medication Instructions Recorded Confirmed aspirin 81 mg tablet,delayed 81 mg PO .COMPLEX 08/25/16 06/21/22 release atorvastatin 80 mg tablet 80 mg PO QHS 08/25/16 06/21/22 bupropion HCl 150 mg tablet,12 hr 150 mg PO DAILY 08/25/16 06/21/22 sustained-release clopidogrel 75 mg tablet 75 mg PO QDAY 08/25/16 06/21/22 dextran 70-hypromellose 0.1 %-0.3 1 drp ophthalmic (eye) PRN PRN Dry 08/25/16 1 08/21/21 % eye drops Eye(S) diphenhydramine HCl 25 mg tablet 25 mg PO BID 08/25/16 06/21/22 docusate sodium 250 mg capsule 250 mg PO QDAY 08/25/16 06/21/22 fluticasone 50 mcg 120D 1 dose inhalation DAILY 08/25/16 06/21/22 gabapentin 600 mg tablet 600 mg PO BID 08/25/16 06/21/22 hydrophilic cream 1 applic topical BID PRN itching 08/25/16 06/21/22 lisinopril 40 mg tablet 40 mg PO QAM 08/25/16 06/21/22 melatonin 3 mg tablet 3 mg PO HS PRN Sleep 08/25/16 06/21/22 multivitamin with minerals 1 tab-cap PO QDAY 08/25/16 06/21/22 nitroglycerin 0.4 mg sublingual 0.4 mg sublingual Q5-15M PRN Sleep 08/25/16 06/21/22 tablet carvedilol 25 mg tablet 25 mg PO BID 03/20/22 06/21/22 cyclobenzaprine 10 mg tablet 5 - 10 mg PO BID PRN Muscle Spasm 03/20/22 06/21/22 diclofenac sodium 1 % topical gel 4 g topical BID 03/20/22 06/21/22 (Arthritis Pain (diclofenac)) lidocaine 5 % topical patch 1 patch topical QDAY 03/20/22 06/21/22 omeprazole 20 mg tablet,delayed 20 mg PO QDAY 03/20/22 06/21/22 release tamsulosin 0.4 mg capsule 0.4 mg PO QDAY 03/20/22 06/21/22 acetaminophen 500 mg tablet 1,000 mg PO BID PRN Pain 03/21/22 06/21/22 tiotropium 2.5 mcg-olodaterol 2.5 2 puff inhalation DAILY 03/21/22 06/21/22 mcg/actuation mist for inhalation Allergies Allergy/AdvReac Type Severity Reaction Status Date / Time azithromycin Allergy Unknown Unknown Verified 06/28/22 09:38 methadone [Methadone] Allergy Unknown Unknown Verified 06/28/22 09:38 morphine Allergy Unknown Unknown Verified 06/28/22 09:38 Nefazodone [From Serzone] Allergy Unknown Unknown Verified 06/28/22 09:38 sulfamethoxazole Allergy Unknown Unknown Verified 06/28/22 09:38 trimethoprim Allergy Unknown Unknown Verified 06/28/22 09:38 Sulfa Drugs Allergy Unknown Unknown Uncoded 03/24/22 16:42 Review of Systems ROS ROS Narrative: Narrative: All systems ED: reviewed and negative except as stated. [facility] Narrative Patient History Narrative: Narrative: Medical/Surgical/Family History All Active Problems (Updated 06/28/22 @ 11:58 by Stoney Slater DO) Acute and chronic respiratory failure with hypoxia (Acute) Pneumonia due to COVID-19 virus (Acute) Partial obstruction of small intestine (Acute) Partial small bowel obstruction (Acute) Cervicalgia (Chronic) Anxiety (Chronic) Vitamin D deficiency (Chronic) Left knee pain (Chronic) Unsteady gait (Chronic) Secondary erythrocytosis (Chronic) Paroxysmal vertigo (Chronic) Obstructive sleep apnea syndrome (Chronic) Lymphocytosis (Chronic) Premature atrial contraction (Chronic) TIA (transient ischemic attack) (Chronic) History of cerebrovascular accident (Chronic) Hyperlipemia (Chronic) Snoring (Chronic) Upper airway resistance syndrome (Chronic) Hypersomnia (Chronic) Constipation (Chronic) Basal cell carcinoma of skin of upper extremity (Chronic) Coronary artery disease (Chronic) Angina pectoris (Chronic) Coronary arteriosclerosis (Chronic) Male erectile disorder (Chronic) Peripheral vascular disease, unspecified (Chronic) Epistaxis (Chronic) Subjective tinnitus (Chronic) Positional vertigo (Chronic) Chronic pain (Chronic) Cervical spondylosis (Chronic) COPD (chronic obstructive pulmonary disease) (Chronic) Hypercholesterolemia (Chronic) Hypertensive disorder (Chronic) Chronic post-traumatic stress disorder (Chronic) Benign prostatic hypertrophy with urinary obstruction (Chronic) Medical History Angina pectoris Anxiety Basal cell carcinoma of skin of upper extremity Benign prostatic hypertrophy with urinary obstruction Cervical spondylosis Cervicalgia Chronic pain Neck, back of head, lower back Chronic post-traumatic stress disorder Constipation COPD (chronic obstructive pulmonary disease) Coronary arteriosclerosis Coronary artery disease Epistaxis History of cerebrovascular accident Hypercholesterolemia Hyperlipemia Hypersomnia Hypertensive disorder systemic arterial Left knee pain Lymphocytosis Male erectile disorder Obstructive sleep apnea syndrome Paroxysmal vertigo Peripheral vascular disease, unspecified Positional vertigo Premature atrial contraction Secondary erythrocytosis Snoring Subjective tinnitus TIA (transient ischemic attack) Unsteady gait Upper airway resistance syndrome Vitamin D deficiency Surgical History History of aorto-femoral bypass (~2002) History of esophagogastroduodenoscopy (EGD) (12/23/10) History of resection of small bowel (~2003) Family History Other No pertinent family history Social History Smoking Status: Current every day smoker Exam Narrative Narrative: Narrative: General Limitations: no limitations General appearance: Present alert ENT ENT: Present normal oropharynx and mucous membranes moist Neck Neck: Present normal inspection; Absent meningismus Chest Chest: Present normal inspection; Absent tenderness Respiratory Respiratory: Present rales/crackles and other (Tachypnea); Absent wheezes Cardiovascular Cardiovascular: Present regular rate and normal rhythm Adbominal Abdominal: Present soft; Absent tenderness Extremities Extremities: Present normal capillary refill Back Back: Absent CVA tenderness (R) or CVA tenderness (L) Neurological Neurological: Present oriented X3 and normal gait Psychiatric Psychiatric: Present normal affect and normal mood Skin Skin: Present warm (WNL) and intact Course Course Course Narrative: Patient was evaluated for shortness of breath. Chest x-ray obtained with image reviewed myself concerning for viral pneumonia. Labs were obtained and relatively unremarkable to clued normal white cell count and procalcitonin. With a normal Pro-[place] and white cell count bacterial pneumonia is less likely. CTA of the chest obtained due to elevated D-dimer negative for PE but consistent with COVID-pneumonia. Patient did test negative for COVID here but he did test positive last week so COVID-pneumonia still likely. Patient desatted down to 82% on room air after ambulation. He required 1 L of oxygen via nasal can to maintain adequate ox saturation. Recommend the patient be admitted to the hospital. Case was discussed with hospitalist was agreed to admit the patient. Reevaluation(s) Reevaluation #1: Patient remains hemodynamic stable. No new complaints at this time. Time: 10:40 Consultations Consultation #1: Discussed with hospitalist, Dr. Batista, who is graciously excepted patient to be admitted to the hospital Time: 12:12 Vital Signs Vital signs: Vital Signs Temperature 97.2 F 06/28/22 09:35 Pulse Rate 71 06/28/22 09:35 Respiratory Rate 26 H 06/28/22 09:35 Blood Pressure 148/60 06/28/22 09:35 Pulse Oximetry (%) 89 L 06/28/22 09:35 Oxygen Delivery Method 06/28/22 09:35 Temperature 97.2 F 06/28/22 09:35 Pulse Rate 70 06/28/22 11:31 Respiratory Rate 23 H 06/28/22 10:50 Blood Pressure 136/65 06/28/22 11:46 Pulse Oximetry (%) 82 L 06/28/22 11:46 Oxygen Delivery Method 06/28/22 11:53 Oxygen Flow Rate (L/min) 1 06/28/22 11:53 [facility] MDM Narrative Medical decision making narrative: Narrative: Differential Diagnosis Differential Diagnosis: Pneumonia, viral illness, PE Medical Records Medical records reviewed: Yes I reviewed the patient's medical records. Lab Data Lab results reviewed: Yes I reviewed the patient's lab results. Result diagrams: 06/28/22 09:48 Labs: Lab Results 1206/28/22 06/28/22 Range/Units 09:48 09:52 09:56 WBC 9.3 (4.5-11.0) K/mcL RBC 3.86 L (4.63-6.08) M/mcL Hgb 12.1 L (13.7-17.5) g/dL Hct 34.8 L (40.1-51.0) % POC Hct 35.0 L (41-55) MCV 90.2 (80.0-100.0) fL MCH 31.3 (26.0-34.0) pg MCHC 34.8 (31.0-36.0) g/dL RDW 13.2 (11.5-14.5) % Plt Count 403 (140-440) K/mcL MPV 9.4 (8.8-12.5) fL Immature Gran % (Auto) 0.5 (0.0-0.5) % Neut % (Auto) 68.5 (38.0-78.0) % Lymph % (Auto) 15.8 (15.5-49.0) % Vernon % (Auto) 13.5 H (1.0-12.0) % Eos % (Auto) 1.3 (0.0-7.0) % Baso % (Auto) 0.4 (0.0-2.0) % Lymph # (Auto) 1.47 L (1.50-4.80) K/mcL Vernon # (Auto) 1.26 H (0.10-0.90) K/mcL Eos # (Auto) 0.12 (0.00-0.70) K/mcL Baso # (Auto) 0.04 (0.00-0.30) K/mcL Immature Gran # 0.05 (0.00-0.05) K/mcl Absolute Neutrophils 6.39 (1.80-8.00) K/mcL D-Dimer (0.27-0.50) ug/mL POC VBG pH 7.41 (7.32-7.42) POC VBG pCO2 at Temp 41.8 (41-51) POC VBG pO2 29 (25-40) POC VBG HCO3 26.4 (24-28) POC VBG Total CO2 28.0 (25-29) POC Venous O2 Sat 56.0 (40-70) POC VBG Base Excess 2.0 (-2-2) VBG Lactic Acid 0.8 (0.5-2) POC Sodium 130 L (133-145) POC Potassium 3.7 (3.3-5.1) POC Chloride 95 L (96-108) POC Total CO2 27.0 (22-30) POC BUN 6 (6-20) POC Creatinine 0.6 (0.6-1.2) POC Glucose 121 H (70-105) POC WB Ioniz Calcium 1.12 L (1.16-1.32) Total Bilirubin (0.1-1.0) mg/dL Direct Bilirubin (<0.3) mg/dL AST (<40) U/L ALT (<40) U/L Alkaline Phosphatase (39-117) U/L Total Protein (5.9-8.4) gm/dL Albumin (3.2-5.2) gm/dL Globulin (2.2-3.7) gm/dL Procalcitonin (<0.10) ng/mL 06/28/22 06/28/22 06/28/22 Range/Units 10:14 10:14 10:39 WBC (4.5-11.0) K/mcL RBC (4.63-6.08) M/mcL Hgb (13.7-17.5) g/dL Hct (40.1-51.0) % POC Hct (41-55) MCV (80.0-100.0) fL MCH (26.0-34.0) pg MCHC (31.0-36.0) g/dL RDW (11.5-14.5) % Plt Count (140-440) K/mcL MPV (8.8-12.5) fL Immature Gran % (Auto) (0.0-0.5) % Neut % (Auto) (38.0-78.0) % Lymph % (Auto) (15.5-49.0) % Vernon % (Auto) (1.0-12.0) % Eos % (Auto) (0.0-7.0) % Baso % (Auto) (0.0-2.0) % Lymph # (Auto) (1.50-4.80) K/mcL Vernon # (Auto) (0.10-0.90) K/mcL Eos # (Auto) (0.00-0.70) K/mcL Baso # (Auto) (0.00-0.30) K/mcL Immature Gran # (0.00-0.05) K/mcl Absolute Neutrophils (1.80-8.00) K/mcL D-Dimer 1.56 H (0.27-0.50) ug/mL POC VBG pH (7.32-7.42) POC VBG pCO2 at Temp (41-51) POC VBG pO2 (25-40) POC VBG HCO3 (24-28) POC VBG Total CO2 (25-29) POC Venous O2 Sat (40-70) POC VBG Base Excess (-2-2) VBG Lactic Acid (0.5-2) POC Sodium (133-145) POC Potassium (3.3-5.1) POC Chloride (96-108) POC Total CO2 (22-30) POC BUN (6-20) POC Creatinine (0.6-1.2) POC Glucose (70-105) POC WB Ioniz Calcium (1.16-1.32) Total Bilirubin 0.6 (0.1-1.0) mg/dL Direct Bilirubin 0.2 (<0.3) mg/dL AST 16 (<40) U/L ALT 19 (<40) U/L Alkaline Phosphatase 68 (39-117) U/L Total Protein 6.3 (5.9-8.4) gm/dL Albumin 3.3 (3.2-5.2) gm/dL Globulin 3.0 (2.2-3.7) gm/dL Procalcitonin 0.04 (<0.10) ng/mL ED POC Tests ED POC Tests: RUTH ANN - Influenza A Negative RUTH ANN - Influenza B Negative RUTH ANN - SARS Antigen Negative Radiology Data Radiology results reviewed: Yes I reviewed the patient's radiology results. Radiology results narrative: Chest x-ray obtained with image reviewed myself, I agree with radiologist interpretation CTA chest obtained with image reviewed myself, agree with radiologist interpretation Core Measures AMI Core Measures Followed: Yes Discharge Plan Patient/Caregiver Discharge Instructions Pt seen by DISCHARGE PLANNER/PA only: No Clinical Impression: Acute and chronic respiratory failure with hypoxia, Pneumonia due to COVID-19 virus Patient Disposition: Xfer As Outpt/Obs ([facility]) Condition: Fair Follow up with: Siobhan Mejias ARNP [Primary Care Provider] - Prescriptions: No Action aspirin 81 mg tablet,delayed release (DR/EC) 81 mg PO .COMPLEX Label Comments: 81 mg PO take 2 tablets QDAY Rx Instructions: 81 mg PO take 2 tablets QDAY atorvastatin 80 mg tablet 80 mg PO QHS bupropion HCl 150 mg tablet extended release 150 mg PO DAILY clopidogrel 75 mg tablet 75 mg PO QDAY dextran 70-hypromellose 0.1-0.3 % drops 1 drp OPHTHALMIC PRN PRN (Reason: Dry Eye(S)) diphenhydramine HCl 25 mg tablet 25 mg PO BID docusate sodium 250 mg capsule 250 mg PO QDAY fluticasone 50 mcg 120D 50 mcg drops 1 dose INHALATION DAILY Label Comments: INHALATION Rx Instructions: INHALATION gabapentin 600 mg tablet 600 mg PO BID hydrophilic cream cream 1 applic TOPICAL BID PRN (Reason: itching) lisinopril 40 mg tablet 40 mg PO QAM melatonin 3 mg tablet 3 mg PO HS PRN (Reason: Sleep) multivitamin with minerals capsule 1 tab-cap PO QDAY nitroglycerin 0.4 mg tablet, sublingual 0.4 mg SUBLINGUAL Q5-15M PRN (Reason: Sleep) carvedilol 25 mg Tablet 25 mg PO BID Rx Instructions: must administer with a meal/food cyclobenzaprine 10 mg Tablet 5 - 10 mg PO BID PRN (Reason: Muscle Spasm) diclofenac sodium [Arthritis Pain (diclofenac)] 1 % Gel 4 g TOPICAL BID lidocaine 5 % Adhesive Patch,Medicated 1 patch TOPICAL QDAY Rx Instructions: leave on most painful area for up to 12 hrs omeprazole 20 mg Tablet,Delayed Release (Dr/Ec) 20 mg PO QDAY tamsulosin 0.4 mg Capsule 0.4 mg PO QDAY tiotropium-olodaterol 2.5-2.5 mcg/actuation Mist 2 puff INHALATION DAILY acetaminophen 500 mg Tablet 1,000 mg PO BID PRN (Reason: Pain)
[2022-06-28 11:23] LABS: Basophils # (Auto) 0.04 K/mcL (0.00-0.30); Basophils % (Auto) 0.4 % (0.0-2.0); Eosinophils # (Auto) 0.12 K/mcL (0.00-0.70); Eosinophils % (Auto) 1.3 % (0.0-7.0); Hematocrit 34.8 % (40.1-51.0); Hemoglobin 12.1 g/dL (13.7-17.5); Lymphocytes # (Auto) 1.47 K/mcL (1.50-4.80); Lymphocytes % (Auto) 15.8 % (15.5-49.0); Mean Cell Volume 90.2 fL (80.0-100.0); Mean Corpuscular HGB Conc 34.8 g/dL (31.0-36.0); Mean Platelet Volume 9.4 fL (8.8-12.5); Monocytes # (Auto) 1.26 K/mcL (0.10-0.90); Monocytes % (Auto) 13.5 % (1.0-12.0); Neutrophils % (Auto) 68.5 % (38.0-78.0); Platelet Count 403 K/mcL (140-440); RBC 3.86 M/mcL (4.63-6.08); Red Cell Distribution Width 13.2 % (11.5-14.5); WBC 9.3 K/mcL (4.5-11.0)
--- NOTE | 2022-06-28 11:27 | Cat Scan Report ---
INDICATION: sob COMPARISON: Previous chest x-ray dated 06/28/2022 TECHNIQUE: Axial images obtained through the chest. 90 mLml Isovue 370 injected intravenously, and scanning was performed during pulmonary arterial phase. Sagittally and coronally reformatted images were obtained. MIP reformatted images. FINDINGS: Lungs:There are infiltrates in both lungs with right apical predominance. There are tree-in-bud infiltrates as well as groundglass infiltrates. This patient has a positive Covid test and these findings may be due to Covid pneumonia. There is bilateral lower lobe pulmonary parenchymal density consistent with atelectasis. There are small bilateral pleural effusions, right worse than left. Pleural effusions are not typical of Covid pneumonia. Findings may be due to a combination of congestive heart failure and Covid pneumonia. There are reticular lines at both lung bases. There is mild peribronchial thickening. These findings may be consistent with interstitial edema. There is an irregular pulmonary parenchymal nodule in the right upper lobe. This measures 14 mm maximally, best identified on image 47. 3 month follow-up CT scan recommended. Mediastinum, vascular:Main pulmonary artery, right pulmonary artery, left pulmonary artery are negative. No intraluminal filling defects. No lobar, segmental, or subsegmental emboli. Thoracic aorta is negative. No aneurysmal dilatation. Main pulmonary artery is not dilated Mild mediastinal adenopathy and mild bilateral hilar adenopathy. Findings may be reactive. Heart:Mild cardiomegaly with biatrial enlargement. No pericardial effusion. No significant reflux of contrast material into the inferior vena cava or right atrium Pleura:Bilateral pleural effusions, right larger than left Axilla, supraclavicular regions, chest wall:No pathologic axillary or supraclavicular adenopathy. Musculoskeletal:Negative thoracic spine. No compression fracture. No lytic lesion. No rib or sternal lesions Upper Abdomen:1.5 cm low-density lesion in the dome of the liver. This is probably a simple cyst IMPRESSION: 1. Negative pulmonary CTA 2. Bilateral parenchymal infiltrates with right upper lobe predominance. Findings may be due to Covid pneumonia 3. Small bilateral pleural effusions, right larger than left. Probable interstitial pulmonary edema. Findings are consistent with congestive heart failure 4. 14 mm right upper lobe nodule. Neoplasm is not excluded. Three-month follow-up examination recommended 5. Mild mediastinal and hilar adenopathy 6. Probable hepatic cyst The exam was performed using radiation dose optimization techniques including, but not limited to, automated exposure control, adjustment of the mA and/or kV according to patient size and use of iterative reconstruction technique. Interpreted and Authenticated by: Zion Bee 06/28/22
[2022-06-28 11:42] LABS: ALT/SGPT 19 U/L (<40); AST/SGOT 16 U/L (<40); Albumin 3.3 gm/dL (3.2-5.2); Alkaline Phosphatase 68 U/L (39-117); Bilirubin,Direct 0.2 mg/dL (<0.3); Bilirubin,Total 0.6 mg/dL (0.1-1.0)
--- NOTE | 2022-06-28 12:44 | Internal Med History&Physical ---
HPI History of Present Illness Patient information: Note initiated : 06/28/22 at 12:33 pm Service Date, if different from initiated Date: [] Patient: Homer Muñoz a 76 y/o M admitted on for COVID. Chief Complaint: [shortness of breath, cough, wheezing] Chief complaint: shortness of breath, cough, wheezing History of present illness: Mr. Muñoz is a 76 year old M history of COPD, obstructive sleep apnea on CPAP, CAD, essential hypertensions, mixed dyslipidemia, BPH, presenting with 1 week history of shortness of breath, cough, and respiratory wheezing. He was being diagnosed with COVID-pneumonia a week ago in [facility] care clinic. He was vaccinated against COVID-pneumonia x3 Pfizer. Over the past week, he has progressively worsening shortness of breath, productive cough with green sputum, and respiratory wheezings. He is also commenting of subjective shaking chills and diaphoresis. He denies any subjective fever. He denies any chest pain or palpitations. Vital signs at ED presentation significant for oxygen desaturating in the low 80s on room air as well as tachypnea in the 20s. Labs significant for lack of leukocytosis with WBC 9.3. Lactic acid 0.8. D-dimer elevated to 1.56. CT chest angiogram negative for any pulmonary embolism. Finding otherwise suggestive of COVID-pneumonia. A 14 mm right upper lobe nodule was also noted and neoplasm is not excluded. 3-month follow-up examination is recommended. Admission request was called for COVID-pneumonia. Constitutional Constitutional: Absent chills, excessive sweating, fatigue, fever(s) or weakness EENT Eyes: Absent blurry vision, change in vision, loss of vision or other visual disturbances Ears: Absent decreased hearing or tinnitus Nose, mouth and throat: Absent abnormal hearing, dry mouth, headache(s), nasal congestion or sore throat Cardiovascular Cardiovascular: Absent chest pain, chest pain at rest, edema, irregular heart rhythm or palpatations Respiratory Respiratory: Present cough, dyspnea, dyspnea on exertion, wheezing and excessive phlegm production Gastrointestinal Gastrointestinal: Absent abdominal pain, constipation, diarrhea, nausea or vomiting Musculoskeletal Musculoskeletal: Absent back pain, deformity, limited range of motion, muscle cramps, muscle weakness or numbness Integumentary Integumentary: Absent lesions, rash or wounds Neurological Neurological: Absent focal weakness, headache(s) or numbness Psychiatric Psychiatric: Absent anxiety, depression or hallucinations PFSH PFSH All Active Problems (Updated 06/28/22 @ 12:39 by Natanael Batista MD) Anemia, normocytic normochromic (Acute) Essential hypertension (Acute) Pulmonary nodule 1 cm or greater in diameter (Acute) TY on CPAP (Acute) Acute and chronic respiratory failure with hypoxia (Acute) Pneumonia due to COVID-19 virus (Acute) Partial obstruction of small intestine (Acute) Partial small bowel obstruction (Acute) Cervicalgia (Chronic) Anxiety (Chronic) Vitamin D deficiency (Chronic) Left knee pain (Chronic) Unsteady gait (Chronic) Secondary erythrocytosis (Chronic) Paroxysmal vertigo (Chronic) Obstructive sleep apnea syndrome (Chronic) Lymphocytosis (Chronic) Premature atrial contraction (Chronic) TIA (transient ischemic attack) (Chronic) History of cerebrovascular accident (Chronic) Hyperlipemia (Chronic) Snoring (Chronic) Upper airway resistance syndrome (Chronic) Hypersomnia (Chronic) Constipation (Chronic) Basal cell carcinoma of skin of upper extremity (Chronic) Coronary artery disease (Chronic) Angina pectoris (Chronic) Coronary arteriosclerosis (Chronic) Male erectile disorder (Chronic) Peripheral vascular disease, unspecified (Chronic) Epistaxis (Chronic) Subjective tinnitus (Chronic) Positional vertigo (Chronic) Chronic pain (Chronic) Cervical spondylosis (Chronic) COPD (chronic obstructive pulmonary disease) (Chronic) Hypercholesterolemia (Chronic) Hypertensive disorder (Chronic) Chronic post-traumatic stress disorder (Chronic) Benign prostatic hypertrophy with urinary obstruction (Chronic) Medical History Angina pectoris Anxiety Basal cell carcinoma of skin of upper extremity Benign prostatic hypertrophy with urinary obstruction Cervical spondylosis Cervicalgia Chronic pain Neck, back of head, lower back Chronic post-traumatic stress disorder Constipation COPD (chronic obstructive pulmonary disease) Coronary arteriosclerosis Coronary artery disease Epistaxis History of cerebrovascular accident Hypercholesterolemia Hyperlipemia Hypersomnia Hypertensive disorder systemic arterial Left knee pain Lymphocytosis Male erectile disorder Obstructive sleep apnea syndrome Paroxysmal vertigo Peripheral vascular disease, unspecified Positional vertigo Premature atrial contraction Secondary erythrocytosis Snoring Subjective tinnitus TIA (transient ischemic attack) Unsteady gait Upper airway resistance syndrome Vitamin D deficiency Surgical History History of aorto-femoral bypass (~2002) History of esophagogastroduodenoscopy (EGD) (12/23/10) History of resection of small bowel (~2003) Family History Other No pertinent family history Social History marital status: smoking status: Current every day smoker MEDS/ALLERGIES Home Medications and Allergies Home Medications Medication Instructions Recorded Confirmed Type aspirin 81 mg tablet,delayed 81 mg PO .COMPLEX 08/25/16 06/21/22 History release atorvastatin 80 mg tablet 80 mg PO QHS 08/25/16 06/21/22 History bupropion HCl 150 mg tablet,12 hr 150 mg PO DAILY 08/25/16 06/21/22 History sustained-release clopidogrel 75 mg tablet 75 mg PO QDAY 08/25/16 06/21/22 History dextran 70-hypromellose 0.1 %-0.3 1 drp ophthalmic (eye) PRN PRN Dry 08/25/16 06/21/22 History % eye drops Eye(S) diphenhydramine HCl 25 mg tablet 25 mg PO BID 08/25/16 06/21/22 History docusate sodium 250 mg capsule 250 mg PO QDAY 08/25/16 06/21/22 History fluticasone 50 mcg 120D 1 dose inhalation DAILY 08/25/16 06/21/22 History gabapentin 600 mg tablet 600 mg PO BID 08/25/16 06/21/22 History hydrophilic cream 1 applic topical BID PRN itching 08/25/16 06/21/22 History lisinopril 40 mg tablet 40 mg PO QAM 08/25/16 06/21/22 History melatonin 3 mg tablet 3 mg PO HS PRN Sleep 08/25/16 06/21/22 History multivitamin with minerals 1 tab-cap PO QDAY 08/25/16 06/21/22 History nitroglycerin 0.4 mg sublingual 0.4 mg sublingual Q5-15M PRN Sleep 08/25/16 06/21/22 History tablet carvedilol 25 mg tablet 25 mg PO BID 03/20/22 06/21/22 History cyclobenzaprine 10 mg tablet 5 - 10 mg PO BID PRN Muscle Spasm 03/20/22 06/21/22 History diclofenac sodium 1 % topical gel 4 g topical BID 03/20/22 06/21/22 History (Arthritis Pain (diclofenac)) lidocaine 5 % topical patch 1 patch topical QDAY 03/20/22 06/21/22 History omeprazole 20 mg tablet,delayed 20 mg PO QDAY 03/20/22 06/21/22 History release tamsulosin 0.4 mg capsule 0.4 mg PO QDAY 03/20/22 06/21/22 History acetaminophen 500 mg tablet 1,000 mg PO BID PRN Pain 03/21/22 06/21/22 History tiotropium 2.5 mcg-olodaterol 2.5 2 puff inhalation DAILY 03/21/22 06/21/22 History mcg/actuation mist for inhalation Allergies Allergy/AdvReac Type Severity Reaction Status Date / Time azithromycin Allergy Unknown Unknown Verified 06/28/22 09:38 methadone [Methadone] Allergy Unknown Unknown Verified 06/28/22 09:38 morphine Allergy Unknown Unknown Verified 06/28/22 09:38 Nefazodone [From Serzone] Allergy Unknown Unknown Verified 06/28/22 09:38 sulfamethoxazole Allergy Unknown Unknown Verified 06/28/22 09:38 trimethoprim Allergy Unknown Unknown Verified 06/28/22 09:38 Sulfa Drugs Allergy Unknown Unknown Uncoded 03/24/22 16:42 EXAM Constitutional Vitals: Temp Pulse Resp BP Pulse Ox O2 Del Method O2 Flow Rate 36.2 C 70 23 H 136/65 82 L 1 06/28/22 09:35 06/28/22 11:31 06/28/22 10:50 06/28/22 11:46 06/28/22 11:46 06/28/22 11:53 06/28/22 11:53 General appearance: cooperative and no acute distress Head Head exam: Present atraumatic and normocephalic Eye Eye exam: Present EOMI and PERRL ENT ENT exam: Present mucous membranes moist, normal exam and normal external ear exam Additional comments: Nasal cannula in place Neck Neck exam: Present normal inspection; Absent lymphadenopathy, tenderness or thyromegaly Respiratory Respiratory exam: Present decreased breath sounds, rhonchi and wheezes; Absent accessory muscle use or respiratory distress Cardiovascular Cardiovascular exam: Present normal rate and rhythm; Absent JVD GI/Abdominal GI/Abdominal exam: Present normal bowel sounds and soft; Absent organomegaly or tenderness Rectal Rectal exam: Present deferred Extremities Exam Extremities exam: Present full ROM, normal capillary refill and normal inspection; Absent tenderness Neurological Exam Neurological exam: Present alert, CN II-XII intact and oriented X3; Absent motor sensory deficit Psychiatric Psychiatric exam: Present normal affect and normal mood; Absent anxious or depressed Skin Skin exam: Present dry and intact DATA Data Completed and Pending Labs: Labs from last 24 hours 06/28/22 06/28/22 06/28/22 10:39 10:14 10:14 WBC RBC Hgb Hct POC Hct MCV MCH MCHC RDW Plt Count MPV Immature Gran % (Auto) Neut % (Auto) Lymph % (Auto) [place] % (Auto) Eos % (Auto) Baso % (Auto) Lymph # (Auto) [place] # (Auto) Eos # (Auto) Baso # (Auto) Immature Gran # Absolute Neutrophils D-Dimer 1.56 H POC VBG pH POC VBG pCO2 at Temp POC VBG pO2 POC VBG HCO3 POC VBG Total CO2 POC Venous O2 Sat POC VBG Base Excess VBG Lactic Acid POC Sodium POC Potassium POC Chloride POC Total CO2 POC BUN POC Creatinine POC Glucose POC WB Ioniz Calcium Total Bilirubin 0.6 Direct Bilirubin 0.2 AST 16 ALT 19 Alkaline Phosphatase 68 Total Protein 6.3 Albumin 3.3 Globulin 3.0 Procalcitonin 0.04 06/28/22 06/28/22 06/28/22 09:56 09:52 09:48 WBC 9.3 RBC 3.86 L Hgb 12.1 L Hct 34.8 L POC Hct 35.0 L MCV 90.2 MCH 31.3 MCHC 34.8 RDW 13.2 Plt Count 403 MPV 9.4 Immature Gran % (Auto) 0.5 Neut % (Auto) 68.5 Lymph % (Auto) 15.8 [place] % (Auto) 13.5 H Eos % (Auto) 1.3 Baso % (Auto) 0.4 Lymph # (Auto) 1.47 L [place] # (Auto) 1.26 H Eos # (Auto) 0.12 Baso # (Auto) 0.04 Immature Gran # 0.05 Absolute Neutrophils 6.39 D-Dimer POC VBG pH 7.41 POC VBG pCO2 at Temp 41.8 POC VBG pO2 29 POC VBG HCO3 26.4 POC VBG Total CO2 28.0 POC Venous O2 Sat 56.0 POC VBG Base Excess 2.0 VBG Lactic Acid 0.8 POC Sodium 130 L POC Potassium 3.7 POC Chloride 95 L POC Total CO2 27.0 POC BUN 6 POC Creatinine 0.6 POC Glucose 121 H POC WB Ioniz Calcium 1.12 L Total Bilirubin Direct Bilirubin AST ALT Alkaline Phosphatase Total Protein Albumin Globulin Procalcitonin A/P Assessment and plan (1) Pneumonia due to COVID-19 virus: Status: Acute (2) TY on CPAP: Status: Acute (3) COPD (chronic obstructive pulmonary disease): Status: Chronic (4) Pulmonary nodule 1 cm or greater in diameter: Status: Acute (5) Hyperlipemia: Status: Chronic (6) Benign prostatic hypertrophy with urinary obstruction: Status: Chronic (7) Essential hypertension: Status: Acute (8) Coronary artery disease: Status: Chronic (9) Anemia, normocytic normochromic: Status: Acute Narrative A/P Narrative: Assessment and Plans: 1. CoVID pneumonia: Inpatient med surg Isolation: airborne and contact Supplemental oxygen therapy, titrate to achieve spo2>=88% Remdesivir Dexamethasone Physical therapy 2. h/o COPD: Continue bronchodilators from home regimen DuoNEB NEB q4hr PRN wheezing or shortness of breath 3. TY on CPAP: Continue CPAP at night while sleeping 4. Pulmonary nodule >1cm in diameter: A 14 mm right upper lobe nodule was also noted and neoplasm is not excluded 3-month follow-up examination is recommended 5. h/o CAD: Aspirin Plavix Statin Coreg 6. Essential hypertension: Coreg Lisinopril 7. Hyperlipidemia: Continue statin therapy 8. Benign prostatic hypertrophy: 9. Anemia, normocytic normochromic: cbc w/ auto diff in the morning to trend H/H GI ppx: Prilosec DVT ppx: Lovenox Code status: Full Prognosis: guarded Disposition: inpatient med surg; PT Time Spent With Patient Time: Total time spent is greater than 50% in coordination of care (as documented) at patient's floor/unit and/or counseling patient: Total time spent with greater than 50% in coordination of care (as documented) at patient's floor/unit and/or counseling patient:: 50 - 70 minutes
[2022-06-28] MEDS ORDERED: REMDESIVIR 200 MG in 0.9 % SODIUM CHLORIDE 250 ML IV ONE (13:40)
[2022-06-28] MEDS ORDERED: ONDANSETRON 4 MG/2 ML VIAL IV PRN (13:40)
[2022-06-28] MEDS ORDERED: IPRATROPIUM/ALBUTEROL 3 ML AMPUL.NEB NEB PRN (13:40)
[2022-06-28] MEDS ORDERED: ACETAMINOPHEN 325 MG TABLET PO PRN (13:40)
[2022-06-28] MEDS: DEXAMETHASONE 4 MG TABLET PO SCH (15:25)
[2022-06-28] MEDS: 0.9 % SODIUM CHLORIDE 10 ML SYRINGE IV SCH ×2 (15:26→21:11)
[2022-06-28] MEDS: guaiFENesin/DEXTROMETHORPHAN ORAL SOL PO PRN (15:26)
[2022-06-28] MEDS ORDERED: NITROGLYCERIN 0.4 MG TAB.SUBL SL PRN (16:17)
[2022-06-28] MEDS ORDERED: MELATONIN 3 MG TABLET PO PRN (16:17)
[2022-06-28] MEDS ORDERED: ACETAMINOPHEN 500 MG TABLET PO PRN (16:17)
[2022-06-28] MEDS ORDERED: CYCLOBENZAPRINE 10 MG TABLET PO PRN (16:22)
[2022-06-28] MEDS ORDERED: HYDROPHILIC TOPICAL PRN (16:33)
[2022-06-28] MEDS ORDERED: CARBOXYMETHYLCELLULOSE SODIUM 1 EACH DROPER.GEL OP PRN (16:39)
[2022-06-28] MEDS ORDERED: DICLOFENAC SODIUM TOPICAL SCH (21:00)
[2022-06-28] MEDS: ATORVASTATIN 40 MG TABLET PO SCH (21:05)
[2022-06-28] MEDS: SENNOSIDES 1 TABLET PO SCH (21:05)
[2022-06-28] MEDS: CARVEDILOL 12.5 MG TABLET PO SCH (21:05)
[2022-06-28] MEDS: GABAPENTIN 300 MG CAPSULE PO SCH (21:06)
[2022-06-28] MEDS: DOCUSATE SODIUM 100 MG CAPSULE PO SCH (21:06)
[2022-06-28] MEDS: diphenhydrAMINE 25 MG CAPSULE PO SCH (21:06)
[2022-06-29] MEDS: 0.9 % SODIUM CHLORIDE 10 ML SYRINGE IV SCH ×3 (05:56→20:40)
[2022-06-29 07:32] LABS: Basophils # (Auto) 0.01 K/mcL (0.00-0.30); Basophils % (Auto) 0.2 % (0.0-2.0); Eosinophils # (Auto) 0 K/mcL (0.00-0.70); Eosinophils % (Auto) 0 % (0.0-7.0); Hematocrit 33.4 % (40.1-51.0); Hemoglobin 11.4 g/dL (13.7-17.5); Lymphocytes # (Auto) 1.04 K/mcL (1.50-4.80); Lymphocytes % (Auto) 16.7 % (15.5-49.0); Mean Cell Volume 90.5 fL (80.0-100.0); Mean Corpuscular HGB Conc 34.1 g/dL (31.0-36.0); Mean Platelet Volume 9.2 fL (8.8-12.5); Monocytes # (Auto) 0.52 K/mcL (0.10-0.90); Monocytes % (Auto) 8.3 % (1.0-12.0); Neutrophils % (Auto) 74.2 % (38.0-78.0); Platelet Count 410 K/mcL (140-440); RBC 3.69 M/mcL (4.63-6.08); Red Cell Distribution Width 12.7 % (11.5-14.5); WBC 6.2 K/mcL (4.5-11.0)
[2022-06-29 08:01] LABS: ALT/SGPT 16 U/L (<40); AST/SGOT 13 U/L (<40); Albumin 2.6 gm/dL (3.2-5.2); Albumin/Globulin Ratio 0.9 (1.0-2.3); Alkaline Phosphatase 59 U/L (39-117); Bilirubin,Total 0.6 mg/dL (0.1-1.0); Blood Urea Nitrogen 7 mg/dL (8-23); Calcium 8.4 mg/dL (8.6-10.4); Carbon Dioxide 23 mmol/L (22-30); Chloride 97 mmol/L (96-108); Glomerular Filtration Rate 105; Glucose 119 mg/dL (70-105)
[2022-06-29] MEDS ORDERED: PNEUMOCOCCAL 23-VAL P-SAC VAC 0.5 ML SYRINGE IM ONE (09:00)
[2022-06-29] MEDS ORDERED: FLUTICASONE 50 MCG INHALATION SCH (09:00)
[2022-06-29] MEDS ORDERED: DOCUSATE SODIUM 100 MG CAPSULE PO SCH (09:00)
[2022-06-29] MEDS ORDERED: FLU VACC QS2022-23(6MOS UP)/PF 60 MCG/0.5 ML SYRINGE IM ONE (09:00)
[2022-06-29] MEDS: DEXAMETHASONE 4 MG TABLET PO SCH (09:09)
[2022-06-29] MEDS: CARVEDILOL 12.5 MG TABLET PO SCH ×2 (09:10→20:40)
[2022-06-29] MEDS: MULTIVIT,THER IRON,CA,FA & MIN 1 TABLET PO SCH (09:12)
[2022-06-29] MEDS: buPROPion 150 MG TAB.SR.12H PO SCH (09:12)
[2022-06-29] MEDS: DOCUSATE SODIUM 100 MG CAPSULE PO SCH ×2 (09:12→20:40)
[2022-06-29] MEDS: OMEPRAZOLE 20 MG CAPSULE PO SCH (09:13)
[2022-06-29] MEDS: TAMSULOSIN 0.4 MG CAPSULE PO SCH (09:13)
[2022-06-29] MEDS: diphenhydrAMINE 25 MG CAPSULE PO SCH ×2 (09:13→20:40)
[2022-06-29] MEDS: ASPIRIN 81 MG TAB.CHEW PO SCH (09:14)
[2022-06-29] MEDS: CLOPIDOGREL 75 MG TABLET PO SCH (09:14)
[2022-06-29] MEDS: ENOXAPARIN 40 MG/0.4 ML SYRINGE SQ SCH (09:17)
[2022-06-29] MEDS: GABAPENTIN 300 MG CAPSULE PO SCH ×2 (09:17→20:39)
[2022-06-29] MEDS: LISINOPRIL 20 MG TABLET PO SCH (09:17)
[2022-06-29] MEDS: LIDOCAINE PATCH TOPICAL SCH (09:18)
[2022-06-29] MEDS: ACTUATION MIST INH SCH (09:20)
[2022-06-29] MEDS: TIOTROPIUM OLODATEROL INH SCH (09:20)
[2022-06-29] MEDS ORDERED: POLYETHYLENE GLYCOL 3350 17 GM PACKET PO PRN (10:20)
--- NOTE | 2022-06-29 11:40 | Internal Med Progress Note ---
SUBJECTIVE Subjective Patient information: Note initiated : 06/29/22 at 11:36 am Service Date, if different from initiated Date: [] Patient: Homer Muñoz a 76 y/o M admitted on 06/28/22 for COVID. Chief Complaint: [] Interval history: Mr. Muñoz is a 76 year old M history of COPD, obstructive sleep apnea on CPAP, CAD, essential hypertensions, mixed dyslipidemia, BPH, presenting with 1 week history of shortness of breath, cough, and respiratory wheezing. He was being diagnosed with COVID-pneumonia a [facility] ago in [facility]. He was v accinated against COVID-pneumonia x3 Pfizer. Over the past week, he has progressively worsening shortness of breath, productive cough with green sputum, and respiratory wheezings. He is also commenting of subjective shaking chills and diaphoresis. He denies any subjective fever. He denies any chest pain or palpitations. Vital signs at ED presentation significant for oxygen desaturating in the low 80s on room air as well as tachypnea in the 20s. Labs significant for lack of leukocytosis with WBC 9.3. Lactic acid 0.8. D-dimer elevated to 1.56. CT chest angiogram negative for any pulmonary embolism. Finding otherwise suggestive of COVID-pneumonia. A 14 mm right upper lobe nodule was also noted and neoplasm is not excluded. 3-month follow-up examination is recommended. Admission request was called for COVID-pneumonia. 06/29: Patient has been afebrile overnight. The patient is currently on 1 L/min of nasal cannula supplemental oxygen. Patient is complaining of improving degree of shortness of breath. He is still complaining of productive cough with yellow sputum productions. He is complaining of respiratory wheezings. He is commenting of chest tightness but denies any chest pain. He denies any fever, chills, or diaphoresis. Continue supplemental oxygen therapy, remdesivir, and dexamethasone for COVID- pneumonia. Physical therapy evaluation and treatments. Constitutional Vitals: Vital Signs Temp Pulse Resp BP Pulse Ox O2 Del Method O2 Flow Rate 36.7 C 67 22 147/69 98 1 06/29/22 08:00 06/29/22 08:00 06/29/22 08:00 06/29/22 08:00 06/29/22 08:00 06/29/22 08:00 06/29/22 08:00 Period Temp Pulse Resp BP Sys/Vela Pulse Ox O2 Del Method O2 Flow Rate Last 24 Hr 35.8 C-36.9 C 64-74 22-24 119-157/56-83 82-98 Nasal Cannula- Room Air 1-1 Intake and Output 06/28/22 06/29/22 06/29/22 19:59 03:59 11:59 Intake Total 730 1100 Output Total 675 400 Balance 730 -675 700 Weight 66.31 kg 64.501 kg Intake & Output: Intake & Output 06/28/22 06/29/22 06/29/22 19:59 03:59 11:59 Intake Total 730 1100 Output Total 675 400 Balance 730 -675 700 Weight 66.31 kg 64.501 kg Intake: IV 250 Veklury 200 mg In Sodium 250 Chloride 0.9% 250 ml @ 500 mls/ hr IV ONCE ONE Rx#:[id number] Oral 480 1100 Output: Void Amount 675 400 Other: Meal Dinner Percent of Meal Consumed 75% Feeding Ability Independent Urine Appearance Clear Clear Urine Color Yellow Yellow General appearance: average body habitus, cooperative and no acute distress Head Head exam: Present atraumatic and normal inspection Eye Eye exam: Present normal appearance ENT ENT exam: Present mucous membranes moist, normal exam and normal external ear exam Additional comments: Nasal cannula in place Neck Neck exam: Present normal inspection Respiratory Respiratory exam: Present rhonchi Cardiovascular Cardiovascular exam: Present normal rate and rhythm GI/Abdominal GI/Abdominal exam: Present normal bowel sounds Back Exam Back exam: Present normal inspection Neurological Exam Neurological exam: Present alert and oriented X3 Skin Skin exam: Present intact and warm OBJ DATA Labs CBC & Chem 7: 06/29/22 06:03 06/29/22 06:03 Labs: Abnormal Lab Results 06/29/22 06/29/22 06/28/22 06:03 06:03 10:14 RBC 3.69 L Hgb 11.4 L Hct 33.4 L POC Hct Immature Gran % (Auto) 0.6 H [place] % (Auto) Lymph # (Auto) 1.04 L [place] # (Auto) D-Dimer 1.56 H POC Sodium Sodium 130 L POC Chloride BUN 7 L Creatinine 0.5 L Glucose 119 H POC Glucose Calcium 8.4 L POC WB Ioniz Calcium Total Protein 5.6 L Albumin 2.6 L Albumin/Globulin Ratio 0.9 L 06/28/22 06/28/22 09:56 09:48 RBC 3.86 L Hgb 12.1 L Hct 34.8 L POC Hct 35.0 L Immature Gran % (Auto) [place] % (Auto) 13.5 H Lymph # (Auto) 1.47 L [place] # (Auto) 1.26 H D-Dimer POC Sodium 130 L Sodium POC Chloride 95 L BUN Creatinine Glucose POC Glucose 121 H Calcium POC WB Ioniz Calcium 1.12 L Total Protein Albumin Albumin/Globulin Ratio Meds: Medications Acetaminophen (Acetaminophen 325 Mg Tablet) 650 mg PO Q6HP PRN; Protocol PRN Reason: Per Pain Protocol/Fever > 101 Acetaminophen (Acetaminophen 500 Mg Tablet) 1,000 mg PO BID PRN; Protocol PRN Reason: Pain Albuterol/Ipratropium (Ipratropium/Albuterol 3 Ml Ampul.Neb) 3 ml NEB Q4HRT PRN PRN Reason: Wheezing Artificial Tears (Carboxymethylcellulose Sodium 1 Each Droper.Gel) 1 each OP PRN PRN PRN Reason: Dry Eye(S) Aspirin (Aspirin 81 Mg Tab.Chew) 162 mg PO QAM [facility] Last Admin: 06/29/22 09:14 Dose: 162 mg Atorvastatin Calcium (Atorvastatin 40 Mg Tablet) 80 mg PO QHS [facility] Last Admin: 06/28/22 21:05 Dose: 80 mg Bupropion HCl (Bupropion 150 Mg Tab.Sr.12h) 150 mg PO DAILY [facility] Last Admin: 06/29/22 09:12 Dose: Not Given Carvedilol (Carvedilol 12.5 Mg Tablet) 25 mg PO BID [facility] Last Admin: 06/29/22 09:10 Dose: 25 mg Clopidogrel Bisulfate (Clopidogrel 75 Mg Tablet) 75 mg PO QDAY [facility] Last Admin: 06/29/22 09:14 Dose: 75 mg Cyclobenzaprine HCl (Cyclobenzaprine 10 Mg Tablet) 5 - 10 mg PO BIDP PRN PRN Reason: Muscle Spasm Dexamethasone (Dexamethasone 4 Mg Tablet) 6 mg PO DAILY [facility] Last Admin: 06/29/22 09:09 Dose: 6 mg Diphenhydramine HCl (Diphenhydramine 25 Mg Capsule) 25 mg PO BID [facility] Last Admin: 06/29/22 09:13 Dose: 25 mg Docusate Sodium (Docusate Sodium 100 Mg Capsule) 100 mg PO BID [facility] Last Admin: 06/29/22 09:12 Dose: 100 mg Enoxaparin Sodium (Enoxaparin 40 Mg/0.4 Ml Syringe) 40 mg SQ DAILY [facility] Last Admin: 06/29/22 09:17 Dose: 40 mg Gabapentin (Gabapentin 300 Mg Capsule) 600 mg PO BID [facility] Last Admin: 06/29/22 09:17 Dose: 600 mg Guaifenesin (Guaifenesin/Dextromethorphan Oral Letitia) 10 ml PO Q4HP PRN PRN Reason: Cough Last Admin: 06/28/22 15:26 Dose: 10 ml REMDESIVIR 100 mg/ Sodium (Chloride) 250 mls @ 500 mls/hr IV Q24H [facility] Stop: 07/02/22 12:29 Iron Carb/Multivit/Alger/Folic Acid (Multivit,Ther Iron,Ca,Fa & Min 1 Tablet) 1 tab PO QDAY [facility] Last Admin: 06/29/22 09:12 Dose: 1 tab Lidocaine (Lidocaine Patch) 1 patch TOPICAL QDAY [facility] Last Admin: 06/29/22 09:18 Dose: 1 patch Lisinopril (Lisinopril 20 Mg Tablet) 40 mg PO QAM [facility] Last Admin: 06/29/22 09:17 Dose: 40 mg Melatonin (Melatonin 3 Mg Tablet) 3 mg PO HSP PRN PRN Reason: Sleep Nitroglycerin (Nitroglycerin 0.4 Mg Tab.Subl) 0.4 mg SL Q5MINP PRN PRN Reason: Chest Pain Omeprazole (Omeprazole 20 Mg Capsule) 20 mg PO QDAY [facility] Last Admin: 06/29/22 09:13 Dose: 20 mg Ondansetron HCl (Ondansetron 4 Mg/2 Ml Vial) 4 mg IV Q6HP PRN PRN Reason: Nausea And Vomiting Tiotropium- Olodaterol 2.5-2.5 Mcg/Actuation Mist 2 dose INH DAILY [facility] Last Admin: 06/29/22 09:20 Dose: 2 dose Polyethylene Glycol (Polyethylene Glycol 3350 17 Gm Packet) 17 gm PO DAILYP PRN PRN Reason: Constipation Senna (Sennosides 1 Tablet) 2 tab PO HS [facility] Last Admin: 06/28/22 21:05 Dose: 2 tab Sodium Chloride (0.9 % Sodium Chloride 10 Ml Syringe) 10 ml IV Q8 [facility] Last Admin: 12/07/22 05:56 Dose: 10 ml Tamsulosin HCl (Tamsulosin 0.4 Mg Capsule) 0.4 mg PO QDAY [facility] Last Admin: 06/29/22 09:13 Dose: 0.4 mg A/P Assessment and plan (1) Pneumonia due to COVID-19 virus: Status: Acute (2) TY on CPAP: Status: Acute (3) COPD (chronic obstructive pulmonary disease): Status: Chronic (4) Pulmonary nodule 1 cm or greater in diameter: Status: Acute (5) Hyperlipemia: Status: Chronic (6) Benign prostatic hypertrophy with urinary obstruction: Status: Chronic (7) Essential hypertension: Status: Acute (8) Coronary artery disease: Status: Chronic (9) Anemia, normocytic normochromic: Status: Acute Narrative A/P Narrative: Assessment and Plans: 1. CoVID pneumonia: Inpatient med surg Isolation: airborne and contact Supplemental oxygen therapy, titrate to achieve spo2>=88% Remdesivir Dexamethasone Physical therapy evaluation and treatment 2. h/o COPD: Continue bronchodilators from home regimen DuoNEB NEB q4hr PRN wheezing or shortness of breath 3. TY on CPAP: Continue CPAP at night while sleeping 4. Pulmonary nodule >1cm in diameter: A 14 mm right upper lobe nodule was also noted and neoplasm is not excluded 3-month follow-up examination is recommended 5. h/o CAD: Aspirin Plavix Statin Coreg 6. Essential hypertension: Coreg Lisinopril 7. Hyperlipidemia: Continue statin therapy 8. Benign prostatic hypertrophy: 9. Anemia, normocytic normochromic: cbc w/ auto diff in the morning to trend H/H GI ppx: Prilosec DVT ppx: Lovenox Code status: Full Prognosis: guarded Disposition: inpatient med surg; PT Time Spent With Patient Time: Total time spent is greater than 50% in coordination of care (as documented) at patient's floor/unit and/or counseling patient: Total time spent with greater than 50% in coordination of care (as documented) at patient's floor/unit and/or counseling patient:: 25 - 35 minutes QUALITY VTE Deep Vein Thrombosis/Pulmonary Embolism Present on Admission: No
[2022-06-29] MEDS: REMDESIVIR 100 MG in 0.9 % SODIUM CHLORIDE 250 ML IV SCH (13:02)
[2022-06-29] MEDS: guaiFENesin/DEXTROMETHORPHAN ORAL SOL PO PRN (19:26)
[2022-06-29] MEDS: ATORVASTATIN 40 MG TABLET PO SCH (20:39)
[2022-06-29] MEDS: SENNOSIDES 1 TABLET PO SCH (20:40)
[2022-06-30] MEDS: 0.9 % SODIUM CHLORIDE 10 ML SYRINGE IV SCH ×3 (05:30→21:48)
[2022-06-30 07:27] LABS: Basophils # (Auto) 0.01 K/mcL (0.00-0.30); Basophils % (Auto) 0.1 % (0.0-2.0); Eosinophils # (Auto) 0 K/mcL (0.00-0.70); Eosinophils % (Auto) 0 % (0.0-7.0); Hemoglobin 11.4 g/dL (13.7-17.5); Lymphocytes # (Auto) 1.98 K/mcL (1.50-4.80); Lymphocytes % (Auto) 17.8 % (15.5-49.0); Mean Cell Volume 89.9 fL (80.0-100.0); Mean Corpuscular HGB Conc 34.5 g/dL (31.0-36.0); Mean Platelet Volume 9.2 fL (8.8-12.5); Monocytes # (Auto) 0.96 K/mcL (0.10-0.90); Monocytes % (Auto) 8.6 % (1.0-12.0); Neutrophils % (Auto) 72.9 % (38.0-78.0); Platelet Count 435 K/mcL (140-440); RBC 3.67 M/mcL (4.63-6.08); Red Cell Distribution Width 12.8 % (11.5-14.5); WBC 11.1 K/mcL (4.5-11.0)
[2022-06-30] MEDS: CLOPIDOGREL 75 MG TABLET PO SCH (08:10)
[2022-06-30] MEDS: GABAPENTIN 300 MG CAPSULE PO SCH ×2 (08:10→21:47)
[2022-06-30] MEDS: diphenhydrAMINE 25 MG CAPSULE PO SCH ×2 (08:10→21:47)
[2022-06-30] MEDS: CARVEDILOL 12.5 MG TABLET PO SCH ×2 (08:10→21:47)
[2022-06-30] MEDS: buPROPion 150 MG TAB.SR.12H PO SCH (08:10)
[2022-06-30] MEDS: DEXAMETHASONE 4 MG TABLET PO SCH (08:11)
[2022-06-30] MEDS: ASPIRIN 81 MG TAB.CHEW PO SCH (08:11)
[2022-06-30] MEDS: MULTIVIT,THER IRON,CA,FA & MIN 1 TABLET PO SCH (08:12)
[2022-06-30] MEDS: DOCUSATE SODIUM 100 MG CAPSULE PO SCH ×2 (08:12→21:47)
[2022-06-30] MEDS: LISINOPRIL 20 MG TABLET PO SCH (08:12)
[2022-06-30] MEDS: TAMSULOSIN 0.4 MG CAPSULE PO SCH (08:13)
[2022-06-30] MEDS: OMEPRAZOLE 20 MG CAPSULE PO SCH (08:13)
[2022-06-30] MEDS: ACTUATION MIST INH SCH (08:17)
[2022-06-30] MEDS: TIOTROPIUM OLODATEROL INH SCH (08:17)
[2022-06-30] MEDS: ENOXAPARIN 40 MG/0.4 ML SYRINGE SQ SCH (08:17)
[2022-06-30] MEDS: LIDOCAINE PATCH TOPICAL SCH (08:19)
[2022-06-30 08:23] LABS: ALT/SGPT 17 U/L (<40); AST/SGOT 12 U/L (<40); Albumin 2.7 gm/dL (3.2-5.2); Albumin/Globulin Ratio 0.9 (1.0-2.3); Alkaline Phosphatase 61 U/L (39-117); Bilirubin,Total 0.4 mg/dL (0.1-1.0); Blood Urea Nitrogen 10 mg/dL (8-23); Calcium 8.2 mg/dL (8.6-10.4); Carbon Dioxide 24 mmol/L (22-30); Chloride 99 mmol/L (96-108); Glomerular Filtration Rate 97; Glucose 104 mg/dL (70-105)
[2022-06-30] MEDS: REMDESIVIR 100 MG in 0.9 % SODIUM CHLORIDE 250 ML IV SCH (11:30)
--- NOTE | 2022-06-30 11:44 | Internal Med Progress Note ---
SUBJECTIVE Subjective Patient information: Note initiated : 06/30/22 at 11:41 am Service Date, if different from initiated Date: [] Patient: Homer Muñoz a 76 y/o M admitted on 06/28/22 for COVID. Chief Complaint: [] Interval history: Mr. Muñoz is a 76 year old M history of COPD, obstructive sleep apnea on CPAP, CAD, essential hypertensions, mixed dyslipidemia, BPH, presenting with 1 week history of shortness of breath, cough, and respiratory wheezing. He was being diagnosed with COVID-pneumonia a week ago in [facility]. He was v accinated against COVID-pneumonia x3 Pfizer. Over the past week, he has progressively worsening shortness of breath, productive cough with green sputum, and respiratory wheezings. He is also commenting of subjective shaking chills and diaphoresis. He denies any subjective fever. He denies any chest pain or palpitations. Vital signs at ED presentation significant for oxygen desaturating in the low 80s on room air as well as tachypnea in the 20s. Labs significant for lack of leukocytosis with WBC 9.3. Lactic acid 0.8. D-dimer elevated to 1.56. CT chest angiogram negative for any pulmonary embolism. Finding otherwise suggestive of COVID-pneumonia. A 14 mm right upper lobe nodule was also noted and neoplasm is not excluded. 3-month follow-up examination is recommended. Admission request was called for COVID-pneumonia. 06/29: Patient has been afebrile overnight. The patient is currently on 1 L/min of nasal cannula supplemental oxygen. Patient is complaining of improving degree of shortness of breath. He is still complaining of productive cough with yellow sputum productions. He is complaining of respiratory wheezings. He is commenting of chest tightness but denies any chest pain. He denies any fever, chills, or diaphoresis. Continue supplemental oxygen therapy, remdesivir, and dexamethasone for COVID- pneumonia. Physical therapy evaluation and treatments. 06/30: Afebrile overnight. Patient is currently on room air. Blood culture no growth today. Patient is complaining of improving degree of shortness of breath. He is still complaining of productive cough with white sputum production. He is complaining of respiratory wheezing. He denies any chest tightness or chest pain. He denies any fever, chills, or diaphoresis. Status post evaluations by physical therapist, who thought the patient is too weak to be discharged today, and instead recommend staying in the hospital for 1 more day and when patient goes home, he recommended him to go with home health physical therapy. Continue supplemental oxygen therapy as needed, remdesivir, and dexamethasone for COVID-pneumonia. Tentative discharge plan: home with home health physical therapy on Sunday 07/01. Constitutional Vitals: Vital Signs Temp Pulse Resp BP Pulse Ox O2 Del Method O2 Flow Rate 36.6 C 68 20 137/55 96 1 06/30/22 08:00 06/30/22 08:00 06/30/22 08:00 06/30/22 08:00 06/30/22 08:00 06/30/22 08:00 06/29/22 16:00 Period Temp Pulse Resp BP Sys/Vela Pulse Ox O2 Del Method O2 Flow Rate Last 24 Hr 36.6 C-36.9 C 66-76 20-23 129-138/55-65 91-97 Nasal Cannula- Room Air 1 Intake and Output 06/29/22 06/30/22 06/30/22 19:59 03:59 11:59 Intake Total 890 900 Balance 890 900 Weight 64.501 kg 64.365 kg Intake & Output: Intake & Output 06/29/22 06/30/22 06/30/22 19:59 03:59 11:59 Intake Total 890 900 Balance 890 900 Weight 64.501 kg 64.365 kg Intake: IV 250 Veklury 100 mg In Sodium 250 Chloride 0.9% 250 ml @ 500 mls/ hr IV Q24H [facility] Rx#:[id number] Oral 640 900 Other: Meal Lunch Percent of Meal Consumed 100% Feeding Ability Independent Stool Size Moderate Stool Color Brown Stool Consistency Formed # Voids 1 1 1 # Bowel Movements 1 Head Head exam: Present atraumatic and normal inspection Eye Eye exam: Present normal appearance ENT ENT exam: Present mucous membranes moist, normal exam and normal external ear exam Neck Neck exam: Present normal inspection Respiratory Respiratory exam: Present rhonchi Cardiovascular Cardiovascular exam: Present normal rate and rhythm GI/Abdominal GI/Abdominal exam: Present normal bowel sounds Back Exam Back exam: Present normal inspection Neurological Exam Neurological exam: Present alert and oriented X3 Skin Skin exam: Present intact and warm OBJ DATA Labs CBC & Chem 7: 06/30/22 05:55 06/30/22 05:55 Labs: Abnormal Lab Results 06/30/22 06/30/22 06/29/22 05:55 05:55 06:03 WBC 11.1 H RBC 3.67 L Hgb 11.4 L Hct 33.0 L POC Hct Immature Gran % (Auto) 0.6 H [place] % (Auto) Lymph # (Auto) [place] # (Auto) 0.96 H Immature Gran # 0.07 H Absolute Neutrophils 8.11 H D-Dimer POC Sodium Sodium 131 L 130 L POC Chloride BUN 7 L Creatinine 0.6 L 0.5 L Glucose 119 H POC Glucose Calcium 8.2 L 8.4 L POC WB Ioniz Calcium Total Protein 5.7 L 5.6 L Albumin 2.7 L 2.6 L Albumin/Globulin Ratio 0.9 L 0.9 L 06/29/22 06/28/22 06/28/22 06:03 10:14 09:56 WBC RBC 3.69 L Hgb 11.4 L Hct 33.4 L POC Hct 35.0 L Immature Gran % (Auto) 0.6 H [place] % (Auto) Lymph # (Auto) 1.04 L [place] # (Auto) Immature Gran # Absolute Neutrophils D-Dimer 1.56 H POC Sodium 130 L Sodium POC Chloride 95 L BUN Creatinine Glucose POC Glucose 121 H Calcium POC WB Ioniz Calcium 1.12 L Total Protein Albumin Albumin/Globulin Ratio 06/28/22 09:48 WBC RBC 3.86 L Hgb 12.1 L Hct 34.8 L POC Hct Immature Gran % (Auto) [place] % (Auto) 13.5 H Lymph # (Auto) 1.47 L [place] # (Auto) 1.26 H Immature Gran # Absolute Neutrophils D-Dimer POC Sodium Sodium POC Chloride BUN Creatinine Glucose POC Glucose Calcium POC WB Ioniz Calcium Total Protein Albumin Albumin/Globulin Ratio Meds: Medications Acetaminophen (Acetaminophen 325 Mg Tablet) 650 mg PO Q6HP PRN; Protocol PRN Reason: Per Pain Protocol/Fever > 101 Acetaminophen (Acetaminophen 500 Mg Tablet) 1,000 mg PO BID PRN; Protocol PRN Reason: Pain Albuterol/Ipratropium (Ipratropium/Albuterol 3 Ml Ampul.Neb) 3 ml NEB Q4HRT PRN PRN Reason: Wheezing Artificial Tears (Carboxymethylcellulose Sodium 1 Each Droper.Gel) 1 each OP HI N PRN PRN Reason: Dry Eye(S) Aspirin (Aspirin 81 Mg Tab.Chew) 162 mg PO QAM [facility] Last Admin: 06/30/22 08:11 Dose: 162 mg Atorvastatin Calcium (Atorvastatin 40 Mg Tablet) 80 mg PO QHS [facility] Last Admin: 06/29/22 20:39 Dose: 80 mg Bupropion HCl (Bupropion 150 Mg Tab.Sr.12h) 150 mg PO DAILY [facility] Last Admin: 06/30/22 08:10 Dose: 150 mg Carvedilol (Carvedilol 12.5 Mg Tablet) 25 mg PO BID [facility] Last Admin: 06/30/22 08:10 Dose: 25 mg Clopidogrel Bisulfate (Clopidogrel 75 Mg Tablet) 75 mg PO QDAY [facility] Last Admin: 06/30/22 08:10 Dose: 75 mg Cyclobenzaprine HCl (Cyclobenzaprine 10 Mg Tablet) 5 - 10 mg PO BIDP PRN PRN Reason: Muscle Spasm Dexamethasone (Dexamethasone 4 Mg Tablet) 6 mg PO DAILY [facility] Last Admin: 06/30/22 08:11 Dose: 6 mg Diphenhydramine HCl (Diphenhydramine 25 Mg Capsule) 25 mg PO BID [facility] Last Admin: 06/30/22 08:10 Dose: 25 mg Docusate Sodium (Docusate Sodium 100 Mg Capsule) 100 mg PO BID [facility] Last Admin: 06/30/22 08:12 Dose: 100 mg Enoxaparin Sodium (Enoxaparin 40 Mg/0.4 Ml Syringe) 40 mg SQ DAILY [facility] Last Admin: 06/30/22 08:17 Dose: 40 mg Gabapentin (Gabapentin 300 Mg Capsule) 600 mg PO BID [facility] Last Admin: 06/30/22 08:10 Dose: 600 mg Guaifenesin (Guaifenesin/Dextromethorphan Oral [place]ia) 10 ml PO Q4HP PRN PRN Reason: Cough Last Admin: 06/29/22 19:26 Dose: 10 ml REMDESIVIR 100 mg/ Sodium (Chloride) 250 mls @ 500 mls/hr IV Q24H [facility] Stop: 07/02/22 12:29 Last Admin: 06/30/22 11:30 Dose: 500 mls/hr Iron Carb/Multivit/[place]/Folic Acid (Multivit,Ther Iron,Ca,Fa & Min 1 Tablet) 1 tab PO QDAY [facility] Last Admin: 06/30/22 08:12 Dose: 1 tab Lidocaine (Lidocaine Patch) 1 patch TOPICAL QDAY [facility] Last Admin: 06/30/22 08:19 Dose: 1 patch Lisinopril (Lisinopril 20 Mg Tablet) 40 mg PO QAM [facility] Last Admin: 06/30/22 08:12 Dose: 40 mg Melatonin (Melatonin 3 Mg Tablet) 3 mg PO HSP PRN PRN Reason: Sleep Nitroglycerin (Nitroglycerin 0.4 Mg Tab.Subl) 0.4 mg SL Q5MINP PRN PRN Reason: Chest Pain Omeprazole (Omeprazole 20 Mg Capsule) 20 mg PO QDAY [facility] Last Admin: 06/30/22 08:13 Dose: 20 mg Ondansetron HCl (Ondansetron 4 Mg/2 Ml Vial) 4 mg IV Q6HP PRN PRN Reason: Nausea And Vomiting Tiotropium- Olodaterol 2.5-2.5 Mcg/Actuation Mist 2 dose INH DAILY [facility] Last Admin: 06/30/22 08:17 Dose: 2 dose Polyethylene Glycol (Polyethylene Glycol 3350 17 Gm Packet) 17 gm PO DAILYP PRN PRN Reason: Constipation Last Admin: 06/29/22 13:04 Dose: 17 gm Senna (Sennosides 1 Tablet) 2 tab PO HS [facility] Last Admin: 06/29/22 20:40 Dose: 2 tab Sodium Chloride (0.9 % Sodium Chloride 10 Ml Syringe) 10 ml IV Q8 [facility] Last Admin: 06/30/22 05:30 Dose: 10 ml Tamsulosin HCl (Tamsulosin 0.4 Mg Capsule) 0.4 mg PO QDAY [facility] Last Admin: 06/30/22 08:13 Dose: 0.4 mg A/P Assessment and plan (1) Pneumonia due to COVID-19 virus: Status: Acute (2) TY on CPAP: Status: Acute (3) COPD (chronic obstructive pulmonary disease): Status: Chronic (4) Pulmonary nodule 1 cm or greater in diameter: Status: Acute (5) Hyperlipemia: Status: Chronic (6) Benign prostatic hypertrophy with urinary obstruction: Status: Chronic (7) Essential hypertension: Status: Acute (8) Coronary artery disease: Status: Chronic (9) Anemia, normocytic normochromic: Status: Acute Narrative A/P Narrative: Assessment and Plans: 1. CoVID pneumonia: Inpatient med surg Isolation: airborne and contact Supplemental oxygen therapy, titrate to achieve spo2>=88% Remdesivir Dexamethasone Physical therapy evaluation and treatment 2. h/o COPD: Continue bronchodilators from home regimen DuoNEB NEB q4hr PRN wheezing or shortness of breath 3. TY on CPAP: Continue CPAP at night while sleeping 4. Pulmonary nodule >1cm in diameter: A 14 mm right upper lobe nodule was also noted and neoplasm is not excluded 3-month follow-up examination is recommended 5. h/o CAD: Aspirin Plavix Statin Coreg 6. Essential hypertension: Coreg Lisinopril 7. Hyperlipidemia: Continue statin therapy 8. Benign prostatic hypertrophy: 9. Anemia, normocytic normochromic: cbc w/ auto diff in the morning to trend H/H GI ppx: Prilosec DVT ppx: Lovenox Code status: Full Prognosis: Stable Disposition: inpatient med surg; Tentative discharge plan: home with home health physical therapy on Sunday 07/01 Time Spent With Patient Time: Total time spent is greater than 50% in coordination of care (as documented) at patient's floor/unit and/or counseling patient: Total time spent with greater than 50% in coordination of care (as documented) at patient's floor/unit and/or counseling patient:: 25 - 35 minutes QUALITY VTE Deep Vein Thrombosis/Pulmonary Embolism Present on Admission: No
[2022-06-30] MEDS: SENNOSIDES 1 TABLET PO SCH (21:47)
[2022-06-30] MEDS: ATORVASTATIN 40 MG TABLET PO SCH (21:47)
[2022-06-30] MEDS: guaiFENesin/DEXTROMETHORPHAN ORAL SOL PO PRN (21:49)
[2022-06-30] MEDS ORDERED: SUCRETS LOZENGE PO PRN (22:16)
[2022-07-01] MEDS: 0.9 % SODIUM CHLORIDE 10 ML SYRINGE IV SCH (04:04)
[2022-07-01] MEDS: TIOTROPIUM OLODATEROL INH SCH (08:11)
[2022-07-01] MEDS: DEXAMETHASONE 4 MG TABLET PO SCH (08:11)
[2022-07-01] MEDS: ACTUATION MIST INH SCH (08:11)
[2022-07-01] MEDS: MULTIVIT,THER IRON,CA,FA & MIN 1 TABLET PO SCH (08:12)
[2022-07-01] MEDS: OMEPRAZOLE 20 MG CAPSULE PO SCH (08:12)
[2022-07-01] MEDS: CARVEDILOL 12.5 MG TABLET PO SCH (08:13)
[2022-07-01] MEDS: ASPIRIN 81 MG TAB.CHEW PO SCH (08:13)
[2022-07-01] MEDS: CLOPIDOGREL 75 MG TABLET PO SCH (08:13)
[2022-07-01] MEDS: LISINOPRIL 20 MG TABLET PO SCH (08:13)
[2022-07-01] MEDS: diphenhydrAMINE 25 MG CAPSULE PO SCH (08:14)
[2022-07-01] MEDS: DOCUSATE SODIUM 100 MG CAPSULE PO SCH (08:14)
[2022-07-01] MEDS: GABAPENTIN 300 MG CAPSULE PO SCH (08:14)
[2022-07-01] MEDS: ENOXAPARIN 40 MG/0.4 ML SYRINGE SQ SCH (08:14)
[2022-07-01] MEDS: TAMSULOSIN 0.4 MG CAPSULE PO SCH (08:14)
[2022-07-01] MEDS: LIDOCAINE PATCH TOPICAL SCH (08:15)
[2022-07-01] MEDS: buPROPion 150 MG TAB.SR.12H PO SCH (08:20)
[2022-07-01 08:57] LABS: Basophils # (Auto) 0.01 K/mcL (0.00-0.30); Basophils % (Auto) 0.1 % (0.0-2.0); Eosinophils # (Auto) 0.01 K/mcL (0.00-0.70); Eosinophils % (Auto) 0.1 % (0.0-7.0); Hematocrit 32.7 % (40.1-51.0); Hemoglobin 11.3 g/dL (13.7-17.5); Lymphocytes # (Auto) 2.65 K/mcL (1.50-4.80); Lymphocytes % (Auto) 25.9 % (15.5-49.0); Mean Cell Volume 89.3 fL (80.0-100.0); Mean Corpuscular HGB Conc 34.6 g/dL (31.0-36.0); Mean Platelet Volume 9.2 fL (8.8-12.5); Monocytes # (Auto) 0.87 K/mcL (0.10-0.90); Monocytes % (Auto) 8.5 % (1.0-12.0); Neutrophils % (Auto) 64.5 % (38.0-78.0); Platelet Count 442 K/mcL (140-440); RBC 3.66 M/mcL (4.63-6.08); WBC 10.2 K/mcL (4.5-11.0)
[2022-07-01 09:03] LABS: ALT/SGPT 16 U/L (<40); AST/SGOT 14 U/L (<40); Albumin 2.5 gm/dL (3.2-5.2); Albumin/Globulin Ratio 0.8 (1.0-2.3); Alkaline Phosphatase 53 U/L (39-117); Bilirubin,Total 0.3 mg/dL (0.1-1.0); Blood Urea Nitrogen 9 mg/dL (8-23); Calcium 8.3 mg/dL (8.6-10.4); Carbon Dioxide 25 mmol/L (22-30); Chloride 99 mmol/L (96-108); Glomerular Filtration Rate 97; Glucose 97 mg/dL (70-105)
--- NOTE | 2022-07-01 09:03 | Discharge Summary ---
Discharge Provider Provider IMPORTANT FOLLOW-UP INFORMATION FOR PCP: Patient information: Note initiated : 07/01/22 at 9:00 am Service Date, if different from initiated Date: [] Patient: Homer Muñoz 76 y/o M admitted on 06/28/22 for COVID. Chief Complaint: [] Date of admission: 06/28/22 14:10 Discharge date: 07/01/22 Primary care physician: Siobhan Mejias Attending physician on admission: Natanael Batista Consults: 06/28/22 Consult to Physician [CONS] Stat Comment: Consulting Provider: Natanael Batista Reason For Exam: Physician to Consult Attending physician on discharge: Natanael Batista COURSE Hospital Course Hospital course: Mr. Muñoz is a 76 year old M history of COPD, obstructive sleep apnea on CPAP, CAD, essential hypertensions, mixed dyslipidemia, BPH, presenting with 1 week history of shortness of breath, cough, and respiratory wheezing. He was being diagnosed with COVID-pneumonia a week ago in [facility]. He was vaccinated against COVID-pneumonia x3 Pfizer. Over the past week, he has progressively worsening shortness of breath, productive cough with green sputum, and respiratory wheezings. He is also commenting of subjective shaking chills and diaphoresis. He denies any subjective fever. He denies any chest pain or palpitations. Vital signs at ED presentation significant for oxygen desatu rating in the low 80s on room air as well as tachypnea in the 20s. Labs significant for lack of leukocytosis with WBC 9.3. Lactic acid 0.8. D-dimer elevated to 1.56. CT chest angiogram negative for any pulmonary embolism. Finding otherwise suggestive of COVID-pneumonia. A 14 mm right upper lobe nodule was also noted and neoplasm is not excluded. 3-month follow-up examination is recommended. Admission request was called for COVID-pneumonia. 06/29: Patient has been afebrile overnight. The patient is currently on 1 L/min of nasal cannula supplemental oxygen. Patient is complaining of improving degree of shortness of breath. He is still complaining of productive cough with yellow sputum productions. He is complaining of respiratory wheezings. He is commenting of chest tightness but denies any chest pain. He denies any fever, chills, or diaphoresis. Continue supplemental oxygen therapy, remdesivir, and dexamethasone for COVID- pneumonia. Physical therapy evaluation and treatments. 06/30: Afebrile overnight. Patient is currently on room air. Blood culture no growth today. Patient is complaining of improving degree of shortness of breath. He is still complaining of productive cough with white sputum production. He is complaining of respiratory wheezing. He denies any chest tightness or chest pain. He denies any fever, chills, or diaphoresis. Status post evaluations by physical therapist, who thought the patient is too weak to be discharged today, and instead recommend staying in the hospital for 1 more day and when patient goes home, he recommended him to go with home health physical therapy. Continue supplemental oxygen therapy as needed, remdesivir, and dexamethasone for COVID-pneumonia. Tentative discharge plan: home with home health physical therapy on Sunday 07/01. 07/01: Discharged home with home health physical therapy. Rx sent to pharmacy. 2 week PCP follow up appointment made for him. All questions were answered prior to patient being physically discharged. As a reminder, a 14mm right upper lobe nodule found, neoplasm not excluded. [address] chest recommended. Discharge diagnosis: CoVID pneumonia Time Spent with Patient Time attestation: Total time spent providing and/or coordinating discharge services: Time spent: Less than 30 minutes EXAM Constitutional Vitals: Temp Pulse Resp BP Pulse Ox O2 Del Method O2 Flow Rate 36.7 C 65 12 164/71 96 1 07/01/22 06:50 07/01/22 06:50 07/01/22 06:50 07/01/22 06:50 07/01/22 06:50 07/01/22 06:50 06/29/22 16:00 General appearance: cooperative and no acute distress Head Head exam: Present atraumatic and normocephalic Eye Eye exam: Present EOMI and PERRL ENT ENT exam: Present mucous membranes moist, normal exam and normal external ear exam Neck Neck exam: Present normal inspection; Absent lymphadenopathy, tenderness or thyromegaly Respiratory Respiratory exam: Absent accessory muscle use, respiratory distress or wheezes Cardiovascular Cardiovascular exam: Present normal rate and rhythm; Absent JVD GI/Abdominal GI/Abdominal exam: Present normal bowel sounds and soft; Absent organomegaly or tenderness Rectal Rectal exam: Present deferred Extremities Exam Extremities exam: Present full ROM, normal capillary refill and normal inspect ion; Absent tenderness Neurological Exam Neurological exam: Present alert, CN II-XII intact and oriented X3; Absent motor sensory deficit Psychiatric Psychiatric exam: Present normal affect and normal mood; Absent anxious or depressed Skin Skin exam: Present dry and intact Discharge Data Data Completed and Pending Labs on day of discharge: Labs from last 24 hours 07/01/22 07/01/22 05:59 05:59 WBC 10.2 RBC 3.66 L Hgb 11.3 L Hct 32.7 L MCV 89.3 MCH 30.9 MCHC 34.6 RDW 13.0 Plt Count 442 H MPV 9.2 Immature Gran % (Auto) 0.9 H Neut % (Auto) 64.5 Lymph % (Auto) 25.9 [place] % (Auto) 8.5 Eos % (Auto) 0.1 Baso % (Auto) 0.1 Lymph # (Auto) 2.65 [place] # (Auto) 0.87 Eos # (Auto) 0.01 Baso # (Auto) 0.01 Immature Gran # 0.09 H Absolute Neutrophils 6.60 Sodium Pending Potassium Pending Chloride Pending Carbon Dioxide Pending Anion Gap Pending BUN Pending Creatinine Pending GFR Calculation Pending Glucose Pending Calcium Pending Total Bilirubin Pending AST Pending ALT Pending Alkaline Phosphatase Pending Total Protein Pending Albumin Pending Globulin Pending Albumin/Globulin Ratio Pending Preliminary micro results at discharge 06/28/22 10:10 Blood Culture - Preliminary Blood 06/28/22 10:03 Blood Culture - Preliminary Blood Discharge Plan Patient/Caregiver Discharge Instructions Activity: increase activity as tolerated Diet: Regular Diet Instructions: Pneumonia (GEN), COVID-19 (Coronavirus Disease 2019)(GEN) Prescriptions: New dextromethorphan-guaifenesin [Diabetic Tussin DM] 10-100 mg/5 mL Liquid 10 ml PO Q4HP PRN (Reason: Cough) Qty: 240 0RF Continued aspirin 81 mg tablet,delayed release (DR/EC) 81 mg PO .COMPLEX Label Comments: 81 mg PO take 2 tablets QDAY Rx Instructions: 81 mg PO take 2 tablets QDAY atorvastatin 80 mg tablet 80 mg PO QHS bupropion HCl 150 mg tablet extended release 150 mg PO DAILY Label Comments: does not take anymore clopidogrel 75 mg tablet 75 mg PO QDAY dextran 70-hypromellose 0.1-0.3 % drops 1 drp OPHTHALMIC PRN PRN (Reason: Dry Eye(S)) diphenhydramine HCl 25 mg tablet 25 mg PO BID docusate sodium 250 mg capsule 250 mg PO QDAY fluticasone 50 mcg 120D 50 mcg drops 1 dose INHALATION DAILY Label Comments: INHALATION ,does not take Rx Instructions: INHALATION gabapentin 600 mg tablet 600 mg PO BID hydrophilic cream cream 1 applic TOPICAL BID PRN (Reason: itching) Label Comments: does not take lisinopril 40 mg tablet 40 mg PO QAM melatonin 3 mg tablet 3 mg PO HS PRN (Reason: Sleep) multivitamin with minerals capsule 1 tab-cap PO QDAY nitroglycerin 0.4 mg tablet, sublingual 0.4 mg SUBLINGUAL Q5-15M PRN (Reason: Sleep) carvedilol 25 mg Tablet 25 mg PO BID Rx Instructions: must administer with a meal/food cyclobenzaprine 10 mg Tablet 5 - 10 mg PO BID PRN (Reason: Muscle Spasm) Label Comments: does not take diclofenac sodium [Arthritis Pain (diclofenac)] 1 % Gel 4 g TOPICAL BID Label Comments: does not take lidocaine 5 % Adhesive Patch,Medicated 1 patch TOPICAL QDAY Rx Instructions: leave on most painful area for up to 12 hrs omeprazole 20 mg Tablet,Delayed Release (Dr/Ec) 20 mg PO QDAY tamsulosin 0.4 mg Capsule 0.4 mg PO QDAY acetaminophen 500 mg Tablet 1,000 mg PO BID PRN (Reason: Pain) tiotropium-olodaterol 2.5-2.5 mcg/actuation Mist 2 puff INHALATION DAILY Qty: 1 1RF Follow Up Plan Follow up with: PCP, PCP [Other] Siobhan Mejias ARNP [Primary Care Provider] - 07/12/22 1:00 pm Patient Disposition: Home Health Service Prognosis: Fair Rehab Potential: Good I certify that the patient requires SNF services: No Overall status at discharge: patient is progressing back to baseline Discharge Orders: Discharge Order (Routine); Ordered 07/01/22 Ordered By: Natanael CHURCH VTE Deep Vein Thrombosis/Pulmonary Embolism Present on Admission: No
[2022-07-01] MEDS ORDERED: PNEUMOCOCCAL 23-VAL P-SAC VAC 0.5 ML SYRINGE IM ONE (11:30)
[2022-07-01] MEDS ORDERED: FLU VACC QS2022-23(6MOS UP)/PF 60 MCG/0.5 ML SYRINGE IM ONE (11:30)
[2022-07-01] MEDS: REMDESIVIR 100 MG in 0.9 % SODIUM CHLORIDE 250 ML IV SCH (12:11)
== END 2022-07-01 13:25 | disposition home health service (06) | DRG 177 ==
LOC: ED 09:31 → MEDSUR 14:10
PROVIDERS: ADMIT Internal Medicine; ATTEND Internal Medicine

== ENCOUNTER 2023-08-27 15:14 | Inpatient (IN) ==
[2023-08-27] MEDS ORDERED: IOPAMIDOL 100 ML BOTTLE IV ONE (15:15)
[2023-08-27 16:32] LABS: Basophils # (Auto) 0.03 K/mcL (0.00-0.30); Basophils % (Auto) 0.2 % (0.0-2.0); Eosinophils # (Auto) 0.05 K/mcL (0.00-0.70); Eosinophils % (Auto) 0.4 % (0.0-7.0); Hematocrit 28.8 % (40.1-51.0); Hemoglobin 10.2 g/dL (13.7-17.5); Lymphocytes # (Auto) 2.16 K/mcL (1.50-4.80); Lymphocytes % (Auto) 16.2 % (15.5-49.0); Mean Cell Volume 88.3 fL (80.0-100.0); Mean Corpuscular HGB Conc 35.4 g/dL (31.0-36.0); Mean Platelet Volume 9.2 fL (8.8-12.5); Monocytes # (Auto) 0.87 K/mcL (0.10-0.90); Monocytes % (Auto) 6.5 % (1.0-12.0); Neutrophils % (Auto) 76.5 % (38.0-78.0); Platelet Count 328 K/mcL (140-440); RBC 3.26 M/mcL (4.63-6.08); Red Cell Distribution Width 12.1 % (11.5-14.5); WBC 13.3 K/mcL (4.5-11.0)
[2023-08-27] MEDS: IPRATROPIUM/ALBUTEROL 3 ML AMPUL.NEB NEB ONE (16:35)
[2023-08-27] MEDS: methylPREDNISolone SOD SUCC 125 MG/2 ML VIAL IV ONE (16:36)
[2023-08-27 16:44] LABS: ABG Methemoglobin 0.1 % (0.4-1.5); Total Hemoglobin 11.1 gm/Dl (13.5-16.5); VBG Base Excess 2 (-2-3); VBG HCO3 25.4 mmol/L (24.0-28.0); VBG Oxygen Saturation 94.2 % (40.0-70.0); VBG PCO2 35.5 mmHg (41.0-51.0); VBG PH 7.47 U (7.32-7.42); VBG Total CO2 26.5 mmol/L (25.0-29.0)
[2023-08-27 16:55] LABS: ALT/SGPT 12 U/L (<40); AST/SGOT 16 U/L (<40); Albumin 3.2 gm/dL (3.2-5.2); Albumin/Globulin Ratio 1.2 (1.0-2.3); Alkaline Phosphatase 79 U/L (39-117); Bilirubin,Total 0.6 mg/dL (0.1-1.0); Blood Urea Nitrogen 7 mg/dL (8-23); Calcium 8.4 mg/dL (8.6-10.4); Carbon Dioxide 23 mmol/L (22-30); Chloride 84 mmol/L (96-108); Globulin 2.7 gm/dL (2.2-3.7); Glomerular Filtration Rate 97; Glucose 119 mg/dL (70-105)
[2023-08-27] MEDS ORDERED: guaiFENesin 100 MG/5 ML SYRUP PO PRN (16:57)
[2023-08-27] MEDS: LEVOFLOXACIN 750 MG/150 ML BAG IV ONE (17:58)
[2023-08-27] MEDS: 0.9 % SODIUM CHLORIDE 500 ML IV ONE ×2 (17:58→18:55)
[2023-08-27 18:57] LABS: C-Reactive Protein 7.44 mg/dL (0.03-0.80); Thyroid Stimulating Hormone 1.11 uIU/mL (0.27-5.01); Uric Acid 2.1 mg/dL (2.5-8.0)
[2023-08-27] MEDS: guaiFENesin/DEXTROMETHORPHAN 5ML UD CUP ONE (18:57)
[2023-08-27] MEDS ORDERED: hydrALAZINE 20 MG/ML VIAL IV PRN (19:23)
[2023-08-27] MEDS ORDERED: POTASSIUM CHLORIDE 20 MEQ TABLET PO PRN ×2 (19:23)
[2023-08-27] MEDS ORDERED: ACETAMINOPHEN 325 MG TABLET PO PRN (19:23)
[2023-08-27] MEDS ORDERED: MAGNESIUM SULFATE 2 GM/50 ML BAG IV PRN (19:23)
[2023-08-27] MEDS ORDERED: POTASSIUM CHLORIDE 40 MEQ in DEXTROSE 5% IN WATER 500 ML IV PRN (19:23)
[2023-08-27] MEDS ORDERED: ONDANSETRON 4 MG/2 ML VIAL IV PRN (19:23)
[2023-08-27] MEDS: LEVOFLOXACIN 750 MG/150 ML BAG IV SCH (19:29)
[2023-08-27 19:36] LABS: Blood Urea Nitrogen 6 mg/dL (8-23); Calcium 8.4 mg/dL (8.6-10.4); Carbon Dioxide 24 mmol/L (22-30); Chloride 85 mmol/L (96-108); Glomerular Filtration Rate 97; Glucose 157 mg/dL (70-105)
[2023-08-27] MEDS: IPRATROPIUM/ALBUTEROL 3 ML AMPUL.NEB NEB SCH (19:37)
[2023-08-27] MEDS: BUDESONIDE 0.5 MG/2 ML AMPUL.NEB NEB SCH (19:37)
[2023-08-27 19:50] LABS: Osmolality,Urine 168 mOSM/kg (80-1000)
[2023-08-27 19:55] LABS: Lymphocytes % 21 % (15-49); Monocytes % (Manual) 6 % (1-12); Platelet Estimate NORMAL (Normal); RBC Morphology NORMAL (Normal); Segmented Neutrophils % 73 % (38-78)
[2023-08-27 20:20] LABS: Sodium, Urine Random 14 mmol/L
[2023-08-27] MEDS: DOCUSATE SODIUM 100 MG CAPSULE PO SCH (20:57)
[2023-08-27] MEDS ORDERED: NITROGLYCERIN 0.4 MG TAB.SUBL SL PRN (21:05)
[2023-08-27] MEDS ORDERED: DEXTRAN HYPROMELLOSE OPHTHALMIC PRN (21:05)
[2023-08-27] MEDS: LISINOPRIL 20 MG TABLET ONE (21:48)
[2023-08-27] MEDS: ATORVASTATIN 40 MG TABLET ONE (21:48)
[2023-08-27] MEDS: diphenhydrAMINE 25 MG CAPSULE ONE (21:48)
[2023-08-27] MEDS: SODIUM CHLORIDE 1 GM TABLET PO ONE (21:48)
[2023-08-27] MEDS: MELATONIN 3 MG TABLET PO PRN (21:48)
[2023-08-27] MEDS: TAMSULOSIN 0.4 MG CAPSULE PO ONE (21:48)
[2023-08-27] MEDS: MELATONIN 3 MG TABLET PO ONE (21:48)
[2023-08-27] MEDS: methylPREDNISolone SOD SUCC 125 MG/2 ML VIAL IV SCH (21:50)
[2023-08-27] MEDS: 0.9 % SODIUM CHLORIDE 10 ML SYRINGE IV SCH (21:53)
[2023-08-28] MEDS: BENZOCAINE/MENTHOL 1 LOZENGE PO PRN (01:52)
[2023-08-28] MEDS: BENZONATATE 100 MG CAPSULE PO PRN (01:52)
[2023-08-28] MEDS: BENZOCAINE/MENTHOL 1 LOZENGE PO ONE ×2 (01:54→05:35)
[2023-08-28 06:26] LABS: Basophils # (Auto) 0 K/mcL (0.00-0.30); Basophils % (Auto) 0 % (0.0-2.0); Eosinophils # (Auto) 0 K/mcL (0.00-0.70); Eosinophils % (Auto) 0 % (0.0-7.0); Hematocrit 31.1 % (40.1-51.0); Hemoglobin 10.8 g/dL (13.7-17.5); Lymphocytes % (Auto) 10.2 % (15.5-49.0); Mean Cell Volume 89.4 fL (80.0-100.0); Mean Corpuscular HGB Conc 34.7 g/dL (31.0-36.0); Mean Platelet Volume 8.9 fL (8.8-12.5); Monocytes # (Auto) 0.15 K/mcL (0.10-0.90); Monocytes % (Auto) 1.5 % (1.0-12.0); Neutrophils % (Auto) 88.1 % (38.0-78.0); Platelet Count 330 K/mcL (140-440); RBC 3.48 M/mcL (4.63-6.08); Red Cell Distribution Width 11.9 % (11.5-14.5); WBC 9.8 K/mcL (4.5-11.0)
[2023-08-28 06:46] LABS: ALT/SGPT 10 U/L (<40); AST/SGOT 14 U/L (<40); Albumin 3.1 gm/dL (3.2-5.2); Alkaline Phosphatase 78 U/L (39-117); Bilirubin,Direct 0.2 mg/dL (<0.3); Bilirubin,Total 0.4 mg/dL (0.1-1.0); Blood Urea Nitrogen 7 mg/dL (8-23); C-Reactive Protein 8.03 mg/dL (0.03-0.80); Calcium 8.9 mg/dL (8.6-10.4); Carbon Dioxide 22 mmol/L (22-30); Chloride 89 mmol/L (96-108); Glomerular Filtration Rate 97; Glucose 150 mg/dL (70-105); Lactate Dehydrogenase 128 U/L (135-225); Phosphorous 3.2 mg/dL (2.5-4.5); Triglycerides 40 mg/dL (<150); Uric Acid 2.3 mg/dL (2.5-8.0)
[2023-08-28] MEDS: OMEPRAZOLE 20 MG CAPSULE PO SCH (08:03)
[2023-08-28] MEDS: GABAPENTIN 300 MG CAPSULE PO SCH (08:03)
[2023-08-28] MEDS: CARVEDILOL 12.5 MG TABLET PO SCH (08:03)
[2023-08-28] MEDS: LISINOPRIL 20 MG TABLET PO SCH (08:03)
[2023-08-28] MEDS: ENOXAPARIN 40 MG/0.4 ML SYRINGE SQ SCH (08:04)
[2023-08-28] MEDS ORDERED: ASPIRIN 325 MG ENTERIC COATED TABLET PO SCH (09:00)
[2023-08-28] MEDS: guaiFENesin 600 MG TAB.SR.12H PO SCH (10:16)
[2023-08-28] MEDS: SODIUM CHLORIDE 1 GM TABLET PO SCH (10:16)
[2023-08-28] MEDS: LEVOFLOXACIN 750 MG/150 ML BAG IV SCH (10:17)
[2023-08-28 12:51] LABS: Blood Urea Nitrogen 10 mg/dL (8-23); Calcium 8.3 mg/dL (8.6-10.4); Carbon Dioxide 22 mmol/L (22-30); Chloride 89 mmol/L (96-108); Glomerular Filtration Rate 97; Glucose 178 mg/dL (70-105)
[2023-08-28] MEDS: methylPREDNISolone SOD SUCC 40 MG/ML VIAL IV SCH (14:23)
[2023-08-28] MEDS: SODIUM CHLORIDE 1 GM TABLET PO ONE (14:23)
[2023-08-28] MEDS: amLODIPine 10 MG TABLET PO SCH (20:53)
[2023-08-28] MEDS: CLOPIDOGREL 75 MG TABLET PO SCH (20:53)
[2023-08-28] MEDS: ATORVASTATIN 40 MG TABLET PO SCH (20:54)
[2023-08-28] MEDS: TAMSULOSIN 0.4 MG CAPSULE PO SCH (20:54)
[2023-08-29 06:46] LABS: ALT/SGPT 11 U/L (<40); AST/SGOT 13 U/L (<40); Albumin 2.9 gm/dL (3.2-5.2); Albumin/Globulin Ratio 1.2 (1.0-2.3); Alkaline Phosphatase 65 U/L (39-117); Bilirubin,Direct < 0.2 mg/dL (0-0.3); Bilirubin,Total 0.3 mg/dL (0.1-1.0); Blood Urea Nitrogen 11 mg/dL (8-23); C-Reactive Protein 3.33 mg/dL (0.03-0.80); Calcium 8.4 mg/dL (8.6-10.4); Carbon Dioxide 23 mmol/L (22-30); Chloride 94 mmol/L (96-108); Globulin 2.4 gm/dL (2.2-3.7); Glomerular Filtration Rate 97; Glucose 164 mg/dL (70-105); Lactate Dehydrogenase 119 U/L (135-225); Phosphorous 2.8 mg/dL (2.5-4.5); Triglycerides 44 mg/dL (<150); Uric Acid 2.4 mg/dL (2.5-8.0)
[2023-08-29] MEDS: SODIUM CHLORIDE 1 GM TABLET PO SCH (08:10)
[2023-08-29] MEDS: methylPREDNISolone SOD SUCC 40 MG/ML VIAL IV SCH (10:25)
[2023-08-29] MEDS: ACETYLCYSTEINE 800 MG/4 ML VIAL NEB SCH (12:40)
[2023-08-29] MEDS: IPRATROPIUM/ALBUTEROL 3 ML AMPUL.NEB NEB PRN (19:47)
[2023-08-29] MEDS: SENNOSIDES 1 TABLET PO PRN (20:17)
[2023-08-29] MEDS: POLYETHYLENE GLYCOL 3350 17 GM PACKET PO PRN (20:17)
[2023-08-30 06:01] LABS: Blood Urea Nitrogen 11 mg/dL (8-23); Calcium 8.1 mg/dL (8.6-10.4); Carbon Dioxide 23 mmol/L (22-30); Chloride 98 mmol/L (96-108); Glomerular Filtration Rate 97; Glucose 156 mg/dL (70-105)
[2023-08-30] MEDS ORDERED: BENZONATATE 100 MG CAPSULE PO PRN (08:59)
[2023-08-30] MEDS: FUROSEMIDE 20 MG/2 ML VIAL IV ONE (09:56)
[2023-08-30] MEDS: SODIUM CHLORIDE 1 GM TABLET PO SCH (09:57)
[2023-08-30] MEDS: ALBUMIN HUMAN 12.5 GM/50 ML VIAL IV ONE (10:36)
[2023-08-30] MEDS: predniSONE 20 MG TABLET PO SCH (16:59)
[2023-08-31 06:31] LABS: Blood Urea Nitrogen 12 mg/dL (8-23); Calcium 8.5 mg/dL (8.6-10.4); Carbon Dioxide 24 mmol/L (22-30); Chloride 98 mmol/L (96-108); Glomerular Filtration Rate 97; Glucose 135 mg/dL (70-105)
[2023-08-31] MEDS: LEVOFLOXACIN 750 MG TABLET PO SCH (08:35)
[2023-08-31] MEDS: BISACODYL 10 MG SUPP.RECT PR ONE (10:05)
== END 2023-08-31 12:15 | disposition home or self-care (01) | DRG 190 ==
LOC: ED 15:14 → MEDSUR 20:17
PROVIDERS: ADMIT Internal Medicine; ATTEND Internal Medicine

== ENCOUNTER 2024-08-28 08:56 | Inpatient (IN) ==
[2024-08-28] MEDS: 0.9 % SODIUM CHLORIDE 500 ML IV ONE ×2 (09:30→15:36)
[2024-08-28 09:48] LABS: Basophils # (Auto) 0.01 K/mcL (0.00-0.30); Basophils % (Auto) 0.1 % (0.0-2.0); Eosinophils # (Auto) 0 K/mcL (0.00-0.70); Eosinophils % (Auto) 0 % (0.0-7.0); Hematocrit 34.1 % (40.1-51.0); Hemoglobin 12.3 g/dL (13.7-17.5); Lymphocytes # (Auto) 0.67 K/mcL (1.50-4.80); Lymphocytes % (Auto) 8.8 % (15.5-49.0); Mean Cell Volume 86.1 fL (80.0-100.0); Mean Corpuscular HGB Conc 36.1 g/dL (31.0-36.0); Mean Platelet Volume 9.2 fL (8.8-12.5); Monocytes # (Auto) 0.36 K/mcL (0.10-0.90); Monocytes % (Auto) 4.7 % (1.0-12.0); Neutrophils % (Auto) 86.3 % (38.0-78.0); Platelet Count 136 K/mcL (140-440); RBC 3.96 M/mcL (4.63-6.08); Red Cell Distribution Width 12.9 % (11.5-14.5); WBC 7.6 K/mcL (4.5-11.0)
[2024-08-28 10:19] LABS: ALT/SGPT 24 U/L (<40); AST/SGOT 45 U/L (<40); Albumin 3.1 gm/dL (3.2-5.2); Albumin/Globulin Ratio 1.3 (1.0-2.3); Alkaline Phosphatase 67 U/L (39-117); Bilirubin,Total 0.7 mg/dL (0.1-1.0); Blood Urea Nitrogen 15 mg/dL (8-23); Calcium 7.9 mg/dL (8.6-10.4); Carbon Dioxide 23 mmol/L (22-30); Chloride 80 mmol/L (96-108); Globulin 2.3 gm/dL (2.2-3.7); Glomerular Filtration Rate 90; Glucose 101 mg/dL (70-105); Potassium 3.9 mmol/L (3.3-5.1); Sodium 115 mmol/L (133-145)
[2024-08-28 11:23] LABS: Uric Acid 2.3 mg/dL (2.5-8.0)
[2024-08-28] MEDS: DOXYCYCLINE HYCLATE 100 MG TABLET.ORL PO ONE (11:38)
[2024-08-28] MEDS: cefTRIAXone 1 GM VIAL IV ONE (11:39)
[2024-08-28 12:13] LABS: Thyroid Stimulating Hormone 1.72 uIU/mL (0.27-5.01)
[2024-08-28] MEDS ORDERED: METOCLOPRAMIDE 10 MG/2 ML VIAL IV PRN (12:58)
[2024-08-28] MEDS ORDERED: ONDANSETRON 4 MG/2 ML VIAL IV PRN (12:58)
[2024-08-28] MEDS ORDERED: POTASSIUM CHLORIDE 40 MEQ in DEXTROSE 5% IN WATER 500 ML IV PRN (12:58)
[2024-08-28] MEDS ORDERED: MAGNESIUM SULFATE 2 GM/50 ML BAG IV PRN (12:58)
[2024-08-28] MEDS ORDERED: POTASSIUM CHLORIDE 20 MEQ TABLET PO PRN ×2 (12:58)
[2024-08-28 13:46] LABS: C-Reactive Protein 16.9 mg/dL (0.03-0.80)
[2024-08-28] MEDS: 0.9 % SODIUM CHLORIDE 10 ML SYRINGE IV SCH (14:17)
[2024-08-28] MEDS: DEXTROSE 5% IN WATER 500 ML IV ONE ×2 (14:17→15:36)
[2024-08-28 14:53] LABS: Sodium, Urine Random < 20 mmol/L
[2024-08-28 15:00] LABS: Osmolality,Urine 343 mOSM/kg (80-1000)
[2024-08-28 15:08] LABS: Appearance,Urine CLEAR (Clear); Bilirubin,Urine Negative (Negative); Color,Urine YELLOW; Glucose,Urine (UA) Negative (Negative); Ketones,Urine Negative (Negative); Leukocyte Esterase,Urine Negative /uL (Negative); Nitrate,Urine Negative (Negative); Protein,Urine 100 mg/dL (Negative); Specific Gravity,Urine 1.013 (1.000-1.035); Urine Blood Negative (Negative); Urine RBC 2 /hpf (0-3); Urine Squamous Epithelial Cell < 1 /hpf (0-4); Urine WBC 2 /hpf (0-4)
[2024-08-28 17:59] LABS: Sodium 112 mmol/L (133-145)
[2024-08-28] MEDS: SODIUM CHLORIDE 3 % 50 ML IV ONE (18:45)
[2024-08-28 19:57] LABS: Sodium 111 mmol/L (133-145)
[2024-08-28] MEDS: SODIUM CHLORIDE 3 % 100 ML IV ONE ×3 (20:50→22:50)
[2024-08-28] MEDS ORDERED: NITROGLYCERIN 0.4 MG TAB.SUBL SL PRN (20:55)
[2024-08-28] MEDS: GABAPENTIN 300 MG CAPSULE PO SCH (21:30)
[2024-08-28] MEDS: ATORVASTATIN 40 MG TABLET PO SCH (21:30)
[2024-08-28] MEDS: CARVEDILOL 12.5 MG TABLET PO SCH (21:31)
[2024-08-28] MEDS: LISINOPRIL 20 MG TABLET PO SCH (21:32)
[2024-08-28] MEDS: CLOPIDOGREL 75 MG TABLET PO SCH (21:32)
[2024-08-28 22:43] LABS: Sodium 112 mmol/L (133-145)
[2024-08-29] MEDS: ENALAPRILAT 1.25 MG/ML VIAL IV PRN (00:15)
[2024-08-29] MEDS: IPRATROPIUM/ALBUTEROL 3 ML AMPUL.NEB NEB PRN (00:16)
[2024-08-29 01:37] LABS: Sodium 115 mmol/L (133-145)
[2024-08-29] MEDS: SODIUM CHLORIDE 3 % 50 ML IV ONE ×3 (01:39→06:39)
[2024-08-29 04:10] LABS: Basophils # (Auto) 0 K/mcL (0.00-0.30); Basophils % (Auto) 0 % (0.0-2.0); Eosinophils # (Auto) 0 K/mcL (0.00-0.70); Eosinophils % (Auto) 0 % (0.0-7.0); Hematocrit 31.5 % (40.1-51.0); Hemoglobin 11.5 g/dL (13.7-17.5); Lymphocytes # (Auto) 0.56 K/mcL (1.50-4.80); Lymphocytes % (Auto) 8.9 % (15.5-49.0); Mean Cell Volume 85.1 fL (80.0-100.0); Mean Corpuscular HGB Conc 36.5 g/dL (31.0-36.0); Mean Platelet Volume 9.4 fL (8.8-12.5); Monocytes # (Auto) 0.26 K/mcL (0.10-0.90); Monocytes % (Auto) 4.1 % (1.0-12.0); Neutrophils % (Auto) 86.7 % (38.0-78.0); Platelet Count 120 K/mcL (140-440); Red Cell Distribution Width 12.6 % (11.5-14.5); WBC 6.3 K/mcL (4.5-11.0)
[2024-08-29 04:31] LABS: ALT/SGPT 22 U/L (<40); AST/SGOT 42 U/L (<40); Albumin 2.7 gm/dL (3.2-5.2); Albumin/Globulin Ratio 1.2 (1.0-2.3); Alkaline Phosphatase 60 U/L (39-117); Bilirubin,Direct 0.4 mg/dL (<0.3); Bilirubin,Total 0.6 mg/dL (0.1-1.0); Blood Urea Nitrogen 9 mg/dL (8-23); Calcium 7.6 mg/dL (8.6-10.4); Carbon Dioxide 23 mmol/L (22-30); Chloride 84 mmol/L (96-108); Globulin 2.2 gm/dL (2.2-3.7); Glomerular Filtration Rate 103; Glucose 106 mg/dL (70-105); Lactate Dehydrogenase 270 U/L (135-225); Phosphorous 1.8 mg/dL (2.5-4.5); Potassium 3.6 mmol/L (3.3-5.1); Sodium 116 mmol/L (133-145); Triglycerides 55 mg/dL (<150); Uric Acid 1.7 mg/dL (2.5-8.0)
[2024-08-29 07:07] LABS: Sodium 116 mmol/L (133-145)
[2024-08-29] MEDS: OMEPRAZOLE 20 MG CAPSULE PO SCH (08:03)
[2024-08-29] MEDS: cefTRIAXone 1 GM VIAL IV SCH (08:03)
[2024-08-29] MEDS: CARVEDILOL 12.5 MG TABLET PO SCH (08:04)
[2024-08-29] MEDS: 0.9 % SODIUM CHLORIDE 500 ML IV ONE (09:01)
[2024-08-29] MEDS: IPRATROPIUM INH PRN (09:26)
[2024-08-29] MEDS: ALBUTEROL INH PRN (09:26)
[2024-08-29] MEDS: TIOTROPIUM 2.5 MCG INH SCH (09:26)
[2024-08-29] MEDS: OLODATEROL INH SCH (09:26)
[2024-08-29] MEDS: methylPREDNISolone SOD SUCC 40 MG/ML VIAL IV SCH (09:27)
[2024-08-29] MEDS: amLODIPine 10 MG TABLET PO SCH (11:03)
[2024-08-29] MEDS: ENOXAPARIN 40 MG/0.4 ML SYRINGE SQ SCH (11:11)
[2024-08-29] MEDS: ASPIRIN 81 MG TAB.CHEW PO SCH (11:13)
[2024-08-29 12:33] LABS: Sodium 115 mmol/L (133-145)
[2024-08-29] MEDS: IPRATROPIUM/ALBUTEROL 3 ML AMPUL.NEB NEB SCH (12:45)
[2024-08-29] MEDS: SODIUM CHLORIDE 3 % 500 ML IV STA (12:52)
[2024-08-29] MEDS: SODIUM CHLORIDE 3 % 500 ML IV SCH (13:31)
[2024-08-29 16:26] LABS: Sodium 117 mmol/L (133-145)
[2024-08-29] MEDS: MELATONIN 3 MG TABLET PO SCH (19:41)
[2024-08-30 01:02] LABS: Sodium 119 mmol/L (133-145)
[2024-08-30 04:33] LABS: ALT/SGPT 28 U/L (<40); AST/SGOT 48 U/L (<40); Albumin 2.7 gm/dL (3.2-5.2); Albumin/Globulin Ratio 1.2 (1.0-2.3); Alkaline Phosphatase 59 U/L (39-117); Bilirubin,Direct 0.3 mg/dL (<0.3); Bilirubin,Total 0.5 mg/dL (0.1-1.0); Blood Urea Nitrogen 12 mg/dL (8-23); Calcium 7.9 mg/dL (8.6-10.4); Carbon Dioxide 21 mmol/L (22-30); Chloride 90 mmol/L (96-108); Globulin 2.3 gm/dL (2.2-3.7); Glomerular Filtration Rate 103; Glucose 144 mg/dL (70-105); Lactate Dehydrogenase 280 U/L (135-225); Phosphorous 2.1 mg/dL (2.5-4.5); Potassium 3.5 mmol/L (3.3-5.1); Sodium 121 mmol/L (133-145); Triglycerides 56 mg/dL (<150); Uric Acid 2.2 mg/dL (2.5-8.0)
[2024-08-30] MEDS: 0.9 % SODIUM CHLORIDE 1,000 ML IV ONE (08:26)
[2024-08-30] MEDS: OSELTAMIVIR PHOSPHATE 75 MG CAPSULE PO SCH (08:49)
[2024-08-30] MEDS ORDERED: ACETYLCYSTEINE 800 MG/4 ML VIAL NEB SCH (09:00)
[2024-08-30] MEDS: ALBUTEROL SULFATE 2.5 MG/3 ML NEBULIZER NEB PRN (09:08)
[2024-08-30] MEDS: ACETYLCYSTEINE 800 MG/4 ML VIAL NEB ONE (09:09)
[2024-08-30 09:35] LABS: ABG Methemoglobin 0.3 % (0.4-1.5); Total Hemoglobin 13.2 gm/Dl (13.5-16.5); VBG Base Excess -4 (-2-3); VBG HCO3 21.1 mmol/L (24.0-28.0); VBG Oxygen Saturation 85.5 % (40.0-70.0); VBG PCO2 37.2 mmHg (41.0-51.0); VBG PH 7.37 U (7.32-7.42); VBG PO2 46.8 mmHg (25.0-40.0); VBG Total CO2 22.2 mmol/L (25.0-29.0)
[2024-08-30] MEDS ORDERED: IOPAMIDOL 100 ML BOTTLE IV ONE (10:15)
[2024-08-30] MEDS: ACETAMINOPHEN 325 MG TABLET PO PRN (11:54)
[2024-08-30] MEDS: IPRATROPIUM/ALBUTEROL 3 ML AMPUL.NEB NEB SCH (12:37)
[2024-08-30 15:04] LABS: Basophils # (Auto) 0.01 K/mcL (0.00-0.30); Basophils % (Auto) 0.2 % (0.0-2.0); Eosinophils # (Auto) 0 K/mcL (0.00-0.70); Eosinophils % (Auto) 0 % (0.0-7.0); Hematocrit 31.8 % (40.1-51.0); Hemoglobin 11.1 g/dL (13.7-17.5); Lymphocytes % (Auto) 6.5 % (15.5-49.0); Mean Cell Volume 88.8 fL (80.0-100.0); Mean Corpuscular HGB Conc 34.9 g/dL (31.0-36.0); Mean Platelet Volume 10.4 fL (8.8-12.5); Monocytes # (Auto) 0.31 K/mcL (0.10-0.90); Neutrophils % (Auto) 88.1 % (38.0-78.0); Platelet Count 127 K/mcL (140-440); RBC 3.58 M/mcL (4.63-6.08); WBC 6.2 K/mcL (4.5-11.0)
[2024-08-30] MEDS: LEVOFLOXACIN 750 MG/150 ML BAG IV SCH (15:18)
[2024-08-30] MEDS ORDERED: diphenhydrAMINE 50 MG/ML VIAL IV PRN (15:54)
[2024-08-30] MEDS: cefTRIAXone 1 GM VIAL IV ONE (16:14)
[2024-08-30] MEDS: methylPREDNISolone SOD SUCC 125 MG/2 ML VIAL IV SCH (20:40)
[2024-08-31 06:25] LABS: Basophils # (Auto) 0.01 K/mcL (0.00-0.30); Basophils % (Auto) 0.1 % (0.0-2.0); Eosinophils # (Auto) 0 K/mcL (0.00-0.70); Eosinophils % (Auto) 0 % (0.0-7.0); Hematocrit 31.4 % (40.1-51.0); Lymphocytes # (Auto) 0.76 K/mcL (1.50-4.80); Lymphocytes % (Auto) 7.8 % (15.5-49.0); Mean Cell Volume 88.7 fL (80.0-100.0); Monocytes # (Auto) 0.57 K/mcL (0.10-0.90); Monocytes % (Auto) 5.9 % (1.0-12.0); Neutrophils % (Auto) 85.9 % (38.0-78.0); Platelet Count 131 K/mcL (140-440); RBC 3.54 M/mcL (4.63-6.08); Red Cell Distribution Width 12.9 % (11.5-14.5); WBC 9.7 K/mcL (4.5-11.0)
[2024-08-31 06:59] LABS: Blood Urea Nitrogen 11 mg/dL (8-23); Calcium 8.1 mg/dL (8.6-10.4); Carbon Dioxide 21 mmol/L (22-30); Chloride 93 mmol/L (96-108); Glomerular Filtration Rate 103; Glucose 151 mg/dL (70-105); Potassium 3.4 mmol/L (3.3-5.1); Sodium 124 mmol/L (133-145)
[2024-08-31] MEDS: cefTRIAXone 2 GM in DEXTROSE 5% IN WATER 50 ML IV SCH (07:34)
[2024-08-31] MEDS: FLUTICASONE PROPIONATE SPRAY.NAS NS SCH (09:34)
[2024-08-31] MEDS: 0.9 % SODIUM CHLORIDE 1,000 ML IV ONE (09:34)
[2024-08-31] MEDS: ALBUTEROL SULFATE 2.5 MG/3 ML NEBULIZER NEB PRN (21:21)
[2024-09-01 06:49] LABS: Blood Urea Nitrogen 12 mg/dL (8-23); Calcium 8.1 mg/dL (8.6-10.4); Carbon Dioxide 23 mmol/L (22-30); Chloride 96 mmol/L (96-108); Glomerular Filtration Rate 113; Glucose 156 mg/dL (70-105); Potassium 3.9 mmol/L (3.3-5.1); Sodium 129 mmol/L (133-145)
[2024-09-01] MEDS: DOXYCYCLINE HYCLATE 100 MG TABLET.ORL PO SCH (08:18)
[2024-09-01] MEDS: 0.9 % SODIUM CHLORIDE 1,000 ML IV ONE (10:51)
[2024-09-02 06:51] LABS: Blood Urea Nitrogen 15 mg/dL (8-23); Calcium 8.3 mg/dL (8.6-10.4); Carbon Dioxide 23 mmol/L (22-30); Chloride 97 mmol/L (96-108); Glomerular Filtration Rate 113; Glucose 149 mg/dL (70-105); Potassium 4.3 mmol/L (3.3-5.1); Sodium 130 mmol/L (133-145)
[2024-09-02] MEDS: AMOXICILLIN/POTASSIUM CLAV 875 MG TABLET PO SCH (16:54)
[2024-09-02] MEDS: CYCLOBENZAPRINE 10 MG TABLET PO PRN (20:37)
[2024-09-03] MEDS: predniSONE 20 MG TABLET PO SCH (08:31)
[2024-09-03] MEDS: POLYETHYLENE GLYCOL 3350 17 GM PACKET PO PRN (08:31)
[2024-09-03] MEDS: SODIUM CHLORIDE 3 % 15 ML VIAL.NEB INH ONE (11:56)
[2024-09-04] MEDS: SENNOSIDES 1 TABLET PO PRN (08:37)
[2024-09-04 08:56] LABS: Hematocrit 32.9 % (40.1-51.0); Hemoglobin 11.1 g/dL (13.7-17.5)
[2024-09-04 09:22] LABS: Blood Urea Nitrogen 16 mg/dL (8-23); Carbon Dioxide 29 mmol/L (22-30); Chloride 98 mmol/L (96-108); Glomerular Filtration Rate 113; Glucose 100 mg/dL (70-105); Potassium 3.6 mmol/L (3.3-5.1); Sodium 135 mmol/L (133-145)
[2024-09-05 03:23] VITALS: O2SAT 91
[2024-09-05 06:15] LABS: Blood Urea Nitrogen 16 mg/dL (8-23); Calcium 8.2 mg/dL (8.6-10.4); Carbon Dioxide 25 mmol/L (22-30); Chloride 100 mmol/L (96-108); Glomerular Filtration Rate 113; Glucose 128 mg/dL (70-105); Potassium 3.7 mmol/L (3.3-5.1); Sodium 133 mmol/L (133-145)
[2024-09-05 07:43] VITALS: TEMP 97.9
== END 2024-09-05 12:31 | DRG 189 ==
LOC: ED 08:56 → MEDSUR 12:49
PROVIDERS: ADMIT Internal Medicine; ATTEND Internal Medicine